=== PATIENT | female | born 1990 | race Caucasian/White ===

== ENCOUNTER 2016-11-13 05:44 | Day surgery (SDC) | payer BC ==
[2016-11-10 10:14] VITALS: BMI 24.8
[2016-11-13] VITALS (15 sets, daily range): BP systolic 100–117; BP diastolic 55–74; PULSE 66–80; RESP 14–18; Ht 162.6 cm; Wt 64.6 kg
[~2016-11-13] VITALS: Ht 162.6 cm; Wt 64.6 kg
[~2016-11-13 05:44] MED LIST: ASPI-664 PO; CYCL-319 PO; FAMO-18 PO; HYDR-3498 PO; IBUP-1542 PO; IBUP800T25 PO; LEVO25TA53 PO; NAPR-260 PO; ONDA4TAB8 PO; OXYC-281 PO; TRAM50TA2 PO; ZOF8 PO
[2016-11-13] MEDS ORDERED: FOLI-49 PO (06:55)
[2016-11-13] MEDS ORDERED: ROPIVACAINE 0.5 % 30 ML VIAL ONE (07:05)
[2016-11-13] MEDS ORDERED: LIDOCAINE 2% (SDV) 5 ML INJ ONE (07:05)
[2016-11-13] MEDS ORDERED: MIDAZOLAM 1 MG/ML 2 ML INJ ONE ×2 (07:05→07:40)
[2016-11-13] MEDS ORDERED: FENTAnyl 50 MCG/ML VIAL ONE (07:40)
[2016-11-13] MEDS ORDERED: ROCURONIUM 50 MG INJ ONE (07:40)
[2016-11-13] MEDS ORDERED: PROPOFOL 20 ML ONE (07:40)
[2016-11-13] MEDS ORDERED: SUCCINYLCHOLINE CHLORIDE 100 MG/5 ML SYG IV ONE (07:40)
--- NOTE | 2016-11-13 07:51 | HPN ---
Date/Time of Note Date/Time of Note DATE: 11/13/16 TIME: 07:51 Interval H&P Admission Note Pt. seen H&P reviewed: No system changes ANITA RAMSEY MD Nov 13, 2016 07:51
[2016-11-13] MEDS ORDERED: PROVENTIL HFA 6.7GM INHALER ONE (08:16)
[2016-11-13] MEDS ORDERED: PHENYLephrine (100 MCG/ML) 5ML SYG ONE (09:05)
[2016-11-13] MEDS ORDERED: DEXAMETHASONE 4 MG/ML 1 ML INJ ONE (09:22)
[2016-11-13] MEDS ORDERED: ONDANSETRON 4 MG INJ ONE (09:22)
[2016-11-13] MEDS ORDERED: DIPHENHYDRAMINE 50 MG INJ ONE (09:25)
[2016-11-13] MEDS ORDERED: MEPERIDINE 25 MG INJ IV PRN (09:30)
[2016-11-13] MEDS ORDERED: ONDANSETRON 4 MG INJ IV PRN (09:30)
[2016-11-13] MEDS ORDERED: METOCLOPRAMIDE 10 MG INJ IV PRN (09:30)
[2016-11-13] MEDS ORDERED: OXYCODONE/ACETAMINOPHEN (5/325) TAB PO PRN ×3 (09:30→12:00)
[2016-11-13] MEDS ORDERED: DIPHENHYDRAMINE 50 MG INJ IV PRN (09:30)
[2016-11-13] MEDS ORDERED: PROCHLORPERAZINE 10 MG INJ IV PRN (09:30)
[2016-11-13] MEDS ORDERED: HYDROmorphONE (0.2 MG/ML) 10ML SYG IV PRN ×2 (09:30)
[2016-11-13] MEDS ORDERED: GLYCOPYRROLATE 0.4 MG INJ ONE (10:00)
[2016-11-13] MEDS ORDERED: NEOSTIGMINE 3 MG/3 ML SYRINGE ONE (10:00)
[2016-11-13] MEDS ORDERED: CEFAZOLIN 1 GM INJ ONE (10:04)
[2016-11-13] MEDS ORDERED: morphine 2 MG INJ IV PRN (12:00)
[2016-11-13] MEDS ORDERED: morphine 10 MG INJ IV PRN (12:00)
[2016-11-13] MEDS: FENTAnyl 50 MCG/ML VIAL IV PRN ×4 (12:00→12:19)
--- NOTE | 2016-11-13 12:06 | OPR ---
Date/Time of Note Date/Time of Note DATE: 11/13/16 TIME: 11:54 Operative Report Procedure Date: Nov 13, 2016 Preoperative Diagnosis 1. Right ankle soft tissue impingement, synovitis and scar tissue. 2. Right ankle chronic lateral instability. 3. Right ankle medial talar OCD lesion Postoperative Diagnosis 1. Right ankle soft tissue impingement, synovitis and scar tissue. 2. Right ankle chronic lateral instability. 3. Right ankle medial talar OCD lesion, 6 x 4 x 3 mm Operation Performed 1. Bilateral inversion stress x-rays under anesthesia. 2. Arthroscopy of the Right ankle with extensive debridement. 3. Arthroscopic microfracture of the talus 4. Modified Brostrom-Lester reconstruction of the right ankle lateral ligament. 5. Application of platelet-rich plasma to the Right ankle and to the lateral ankle ligaments. 6. Right ankle application osteochondral allograft (Arthrex Biocartilage) to the medial talar dome 7. Application of short leg cast. Surgeon: ANITA RAMSEY MD Hog Sawyer: LINA AUSTIN Anesthesia: general, other (popliteal block) Tourniquet Time: 0 min Estimated Blood Loss: minimal Complications: None Pt Condition Post Procedure: stable Disposition: PACU Indications Patient is a 26 year female with history of multiple ankle sprains and mri and ct documenting medial talar ocd lesion. Patient has failed PT and conservative management and requires surgery Operative Findings 6 x 4 x 3 mm medial talar OCD lesion Procedure Description The patient was marked in the preoperative holding area and confirmed on both consent and with patient. The patient was then brought to the operative theater and placed supine on the operative table. The patient was then given a popliteal block. The patient was then given general anesthesia and 2 grams of Ancef were given intravenously. Bilateral inversion stress x-rays were performed by myself under fluoroscopy and the right ankle tipped approximately 7 degrees and the left ankle tipped 0 degrees. Her exam also revealed increased laxity and was consistent with anterolateral instability. However, it was less consistent with anteromedial instability. The right thigh was secured in the thigh loving. Arms were carefully padded. The right leg was then prepped and draped in the usual manner and time out was taken. All parties in the room agreed it was the correct patient, correct extremity and correct procedure. Superficial peroneal nerve had been marked out. A soft tissue distraction strap was applied across the ankle and a soft tissue dissection was then placed across the ankle at approximately 30 pounds of force. Attention was then turned to the ankle joint and using a typical anterior medial and anterolateral portal with care to avoid injury to the neurovascular structures. A 21 point ankle exam was completed revealing significant anterior lateral synovitis with lateral and medial gutter synovitis and scar tissue formation. There was a hemorrhagic nodule seen in the lateral gutter as well as evidence of anterior tibial osteophyte overhang. The significant amount of scar tissue was thoroughly debrided in the vascular service was examined with no evidence of significant chondral injury. The distal tibial anterior overhang was excised with a dionte and smoothed down with a shaver. Extensive synovitis and scarring was seen on the medial and lateral malleolar/ talar articulation as well as scarring along the distal tibia and lateral gutters and anterior gutter. The articular surface was smooth and glistening anteriorly, centrally and posteriorly. The posterior ligaments had a partial injury to them; however, the transverse ligament was intact as well as the posterior inferior tibiofibular ligament. The lateral ankle ligaments were scarred and consistent with the previous history. The posterior gutter, medial and lateral gutters were debrided and a posterolateral hemorrhagic synovitic nodule was removed. A large medial talar OCD lesion measuring 6 x 4 x 3 mm was seen over the medial talar dome with cystic component. The lesion was thoroughly debrided and cystic membrane was debrided extensively. Once all scar tissue was debrided and complete debridement was then done the ankle was washed out thoroughly. Microfracture was then performed at this lesion, water was turned off and the lesion bed was dried extensively. Arthrex Biocartilage was mixed with PRP (Hct 2%) and then placed over the lesion completely followed by Tisseel to glue it down. The ankle was then reprepped and draped with all new instruments used. The patient was then repositioned and gown and gloves were changed. A longitudinal incision was made from several centimeters above the tip of the fibula to several centimeters distal towards the sinus tarsi. The incision was carried down to subcutaneous tissue. Flaps were made medially and laterally and extensor retinaculum was identified and lifted up. Incision was made in the peroneal tendons. The peroneal tendon sheath was opened up with no tear noted. There was mild tenosynovitis which was debrided. The anterior talofibular ligament was identified. A Vandana was placed underneath it and incision was made around it leaving a cuff on the fibula as it was released. The calcaneofibular ligament was injured and was felt to be necessary to repair. The lateral gutter was debrided further and 2-0 PDS was used to do the initial fgdkp-[id number] suture of the ATFL and CFL and then 0 FiberWire was used for the remaining sutures in the [id number]-[id number]-[id number] fashion. An arthrex internal brace was placed in the talus. The posterior drawer was placed on the ankle with a bolster on the calf and ankle was placed in neutral position and sequentially each suture was tied from posterior to anterior. Once we were done , the ankle was stable and had good range of motion. The internal brace was then placed under controlled tension to the fibula with a 2.7 swivellock. The wound was irrigated thoroughly with antibiotic solution and the extensor retinaculum was then advanced with 3-0 PDS in a [id number]-[id number]-[id number] fashion. Bleeders were coagulated, wounds irrigated with antibiotic solution and the wounds were then closed with 3-0 Monocryl in a running fashion and steri strip. PRP was then applied that was spun down to approximately 2% Hct to the ankle joint and 7% hematocrit from the Arthrex Ruel System to the Brostrom Lester repair site. Compression dressings were then applied after a saphenous nerve block was done with 0.5% ropivacaine. The compression dressings were then soaked in platelet-poor plasma and then wrapped with Soft-Roll and 5 ABDs. The patient was placed in a short leg cast in a neutral position. At the end of the procedure all sponge and needle counts were correct. The patient tolerated procedure well without complication and taken to the recovery room. ANITA RAMSEY MD Nov 13, 2016 12:06
--- NOTE | 2016-11-13 13:10 | RADRPT ---
PROCEDURE: X-ray fluoroscopy guidance CLINICAL INDICATION: Pain TECHNIQUE: Fluoroscopic guidance was utilized for bilateral ankle stress views. COMPARISON: None available FINDINGS: Fluoroscopic guidance was provided. 5.9 seconds of fluoroscopy time was utilized for the procedure. 4 images obtained during the procedure in progress. IMPRESSION: 1. X-ray fluoroscopic guidance, as above. RPTAT: QQ .Donn García MD, MD Date Time Electronically viewed and signed by .Donn García MD, MD on 11/13/2016 13:10 .R/
== END 2016-11-13 14:37 | disposition home or self-care (01) ==
LOC: SDS 05:44
PROVIDERS: ATTEND Orthopaedic Surgery
DX: M25.871 Other specified joint disorders, right ankle and foot (principal); M25.371 Other instability, right ankle; M93.271 Osteochondritis dissecans, right ankle and joints of right foot; E03.9 Hypothyroidism, unspecified
CPT/HCPCS: 27695; 29892; 73600; 84703; J0330; J0690; J1100; J1200; J2175; J2250; J2270; J2405; J2710; J2795; J3010; Z7512; Z7610; J2370

== ENCOUNTER 2016-12-16 10:52 | Emergency (ER) | payer BC ==
[~2016-12-16] VITALS: Wt 64.5 kg
[~2016-12-16 10:52] MED LIST changes: -ASPI-664 PO; -CYCL-319 PO; -FAMO-18 PO; +FOLI-49 PO; -HYDR-3498 PO; -IBUP800T25 PO; -NAPR-260 PO; -ONDA4TAB8 PO; -OXYC-281 PO; -TRAM50TA2 PO; -ZOF8 PO
[2016-12-16] MEDS ORDERED: ACETAMINOPHEN 500 MG TAB PO STA (11:49)
[2016-12-16] MEDS ORDERED: ONDANSETRON 4 MG INJ IV STA (11:49)
[2016-12-16] MEDS ORDERED: morphine 10 MG INJ IV ONE (12:00)
[2016-12-16 12:44] LABS: ADD SCAN DIFF NO
[2016-12-16 12:46] LABS: BASOPHIL # 0.1 10^3/ul (0.0-0.1); BASOPHILS % 0.3 % (0.0-2.0); EOSINOPHILS % 0.1 % (0.0-7.0); HEMATOCRIT 42.3 % (37.0-47.0); HEMOGLOBIN 14.7 g/dl (12.0-16.0); LYMPHOCYTES % 9.4 % (15.0-51.0); MEAN CORPUSCULAR HEMOGLOBIN 30.8 pg (29.0-33.0); MEAN CORPUSCULAR HGB CONC 34.8 g/dl (32.0-37.0); MEAN CORPUSCULAR VOLUME 88.5 fl (82.0-101.0); MEAN PLATELET VOLUME 10.2 fl (7.4-10.4); MONOCYTE # 0.9 10^3/ul (0.3-0.9); MONOCYTES % 4.4 % (0.0-11.0); NEUTROPHIL # 18.1 10^3/ul (1.6-7.5); NEUTROPHILS % 85.2 % (39.0-77.0); PLATELET COUNT 287 10^3/UL (140-415); RED BLOOD COUNT 4.78 10^6/ul (4.20-5.40); RED CELL DISTRIBUTION WIDTH 11.9 % (11.5-14.5); WHITE BLOOD COUNT 21.2 10^3/ul (4.8-10.8)
[2016-12-16 13:07] LABS: ALBUMIN 4.4 g/dl (3.3-4.9); INR 0.9; POTASSIUM 3.8 mmol/L (3.5-5.1); PROTIME 12.1 Sec (12.2-14.2); PT RATIO 0.9
[2016-12-16 13:08] LABS: PARTIAL THROMBOPLASTIN TIME 27.6 Sec (25.0-35.0)
[2016-12-16 13:09] LABS: BILIRUBIN,INDIRECT 1.3 mg/dl (0-1.1); BILIRUBIN,TOTAL 1.3 mg/dl (0.2-1.3); CREATININE 0.84 mg/dl (0.44-1.00)
[2016-12-16 13:10] LABS: ALBUMIN/GLOBULIN RATIO 1.22
[2016-12-16 13:11] LABS: CALCIUM 9.4 mg/dl (8.4-10.2)
[2016-12-16 13:33] LABS: ADD UMIC YES; URINE BILIRUBIN (Dip) NEGATIVE (NEGATIVE); URINE BLOOD (Dip) TRACE (NEGATIVE); URINE COLOR LT. YELLOW (YELLOW); URINE GLUCOSE (Dip) NEGATIVE (NEGATIVE); URINE KETONES (Dip) NEGATIVE (NEGATIVE); URINE LEUKOCYTE ESTERASE (Dip) TRACE (NEGATIVE); URINE NITRITE (Dip) NEGATIVE (NEGATIVE); URINE TOTAL PROTEIN (Dip) NEGATIVE (NEGATIVE); URINE UROBILINOGEN (Dip) 0.2 E.U./dL (0.1-1.0)
--- NOTE | 2016-12-16 13:36 | RADRPT ---
PROCEDURE: US DVT. CLINICAL INDICATION: Right lower extremity pain and swelling. TECHNIQUE: Multiple longitudinal and transverse images of the right lower extremity veins were obt ained with marsh scale and color Doppler imaging. 2D grayscale measurements with compression, color Doppler flow, and augmentation was performed. The calf veins were interrogated as well. COMPARISON: No prior studies are available for comparison. FINDINGS: The right common femoral, superficial femoral and popliteal veins are normally compressible througho ut. Color flow demonstrates normal filling of the vessel. Normal waveforms are visualized and ther e is normal response to augmentation. The calf veins are visualized and are equally unremarkable. IMPRESSION: 1. No evidence of a deep vein thrombosis involving the right lower extremity. RPTAT: HMJB .Dennis Ventura MD, Date Time Electronically viewed and signed by .Dennis Ventura MD, MD on 12/16/2016 13:35 .B/
[2016-12-16 13:40] LABS: SQUAMOUS EPITHELIAL CELL,UR MODERATE; URINE RBCS 0-2 /HPF (0)
[2016-12-16 14:35] LABS: CREATINE KINASE 49 IU/L (23-200)
[2016-12-16] MEDS ORDERED: KETOROLAC 30 MG INJ IV STA (14:37)
[2016-12-16 14:49] LABS: CK-MB < 0.22 ng/ml (0.0-2.4); TROPONIN-I < 0.012 ng/ml (0.00-0.12)
--- NOTE | 2016-12-16 14:51 | ERD ---
ER Documentation Chief Complaint Date/Time DATE: 12/16/16 TIME: 14:38 Chief Complaint RIGHT LOWER LEG PAIN S/P SURGERY ON ANKLE 11/13/16. SENT BY PMD FOR DOPPLER (MELANIE MORALES) HPI This is a 26-year-old female presents to the ER with right calf pain this morning. Patient states that pain is severe and constant it is worse whenever she touches it or moves leg. Patient admits to fever. Recent has not tried anything for the pain. Patient denies any chest pain however does admit to mild shortness of breath. She denies any other body pain. She denies cough or cold symptoms she denies nausea vomiting or diarrhea. Patient is also complaining that her foot feels numb. She had surgery on November 13, 2016 for an ankle sprain. She was told to come to the ER to rule out blood clot. Patient 's daughter was seen here yesterday and was diagnosed with the influenza virus. (MELANIE MORALES) ROS 12 point review of systems was done, all negative except per HPI. (MELANIE MORALES) Medications Home Meds Active Scripts Hydrocodone/Acetaminophen (Rohwer 5-325 Tablet) 1 Each Tablet, 1 TAB PO Q6H Y for PAIN, #20 TAB Prov:MELANIE MORALES 12/16/16 Ibuprofen* (Motrin*) 600 Mg Tab, 600 MG PO Q6, #30 TAB Prov:MELANIE MORALES 12/16/16 Ibuprofen* (Motrin*) 600 Mg Tab, 600 MG PO Q6, #16 TAB Prov:JOVANI MUHAMMAD MD 04/11/16 Reported Medications Folic Acid* (Folic Acid*) 1 Mg Tablet, 1 MG PO DAILY, TAB 11/13/16 Levothyroxine Sodium* (Levothyroxine Sodium*) 25 Mcg Tablet, 1 TAB PO DAILY, #30 11/10/16 Allergies Allergies: Coded Allergies: No Known Drug Allergies (Verified Allergy, Unknown, 11/10/16) Uncoded Allergies: MUSHROOMS (Allergy, Intermediate, SWELL UP, 12/15/13) PMhx/Soc History of Surgery: Yes (briana ear sx,) Anesthesia Reaction: No Hx Neurological Disorder: Yes (bells palsy, stroke x2) Hx Respiratory Disorders: No Hx Cardiac Disorders: No Hx Psychiatric Problems: No Hx Miscellaneous Medical Probl: Yes (cervical ca) Hx Alcohol Use: Yes (socially) Hx Substance Use: No Hx Tobacco Use: No (MELANIE MORALES) Physical Exam Vitals Vital Signs Date Time Temp Pulse Resp B/P Pulse Ox O2 Delivery O2 Flow Rate FiO2 12/16/16 15:06 98.6 105 17 100 Room Air 12/16/16 10:55 101.7 134 20 110/68 95 (JOVANI MUHAMMAD MD) Physical Exam C GENERAL: The patient is well developed and appropriate for usual state of health, in no apparent distress. HEENT: Atraumatic. CHEST: Clear to auscultation bilaterally. There are no rales, wheezes or rhonchi. HEART: Regular rate and rhythm. No murmurs, clicks, rubs or gallops. EXTREMITIES: patient is extremely TTP to the right calf. no redness or swelling of the calf. she does not have any pain to the surgery site. there is no erythema, edema or d/c of the incision sites. +2 pulses, compartments soft, foot is warm to the touch. sensations are intact NEURO: Alert and oriented. SKIN: The skin is warm and dry. (MELANIE MORALES) Result Diagram: 12/16/16 1230 12/16/16 1230 Results 24 hrs Laboratory Tests Test 12/16/16 12:30 12/16/16 13:12 12/16/16 16:30 Activated Partial Thromboplast Time 27.6Sec Alanine Aminotransferase (ALT/SGPT) 19IU/L Albumin 4.4g/dl Albumin/Globulin Ratio 1.22 Alkaline Phosphatase 88IU/L Anion Gap 19 Aspartate Amino Transf (AST/SGOT) 21IU/L Basophils # 0.110^3/ul Basophils % 0.3% Blood Urea Nitrogen 9mg/dl C-Reactive Protein 2.5mg/dl Calcium Level 9.4mg/dl Carbon Dioxide Level 27mmol/L Chloride Level 101mmol/L Creatine Kinase 49IU/L Creatine Kinase Index 0.4 Creatinine 0.84mg/dl Creatinine Kinase MB (Mass) < 0.22ng/ml Direct Bilirubin 0.00mg/dl Eosinophils # 0.010^3/ul Eosinophils % 0.1% Erythrocyte Sedimentation Rate 25mm/Hr Globulin 3.60g/dl Glucose Level 96mg/dl Hematocrit 42.3% Hemoglobin 14.7g/dl INR International Normalized Ratio 0.90 Indirect Bilirubin 1.3mg/dl Lactic Acid Level 1.2mmol/L 0.8mmol/L Lymphocytes # 2.010^3/ul Lymphocytes % 9.4% Mean Corpuscular Hemoglobin 30.8pg Mean Corpuscular Hemoglobin Concent 34.8g/dl Mean Corpuscular Volume 88.5fl Mean Platelet Volume 10.2fl Monocytes # 0.910^3/ul Monocytes % 4.4% Neutrophils # 18.110^3/ul Neutrophils % 85.2% Nucleated Red Blood Cells # 0.010^3/ul Nucleated Red Blood Cells % 0.0/100WBC Platelet Count 59295^3/UL Potassium Level 3.8mmol/L Prothrombin Time 12.1Sec Prothrombin Time Ratio 0.9 Red Blood Count 4.7810^6/ul Red Cell Distribution Width 11.9% Sodium Level 143mmol/L Total Bilirubin 1.3mg/dl Total Protein 8.0g/dl Troponin I < 0.012ng/ml White Blood Count 21.210^3/ul Urine Bilirubin NEGATIVE Urine Clarity CLEAR Urine Color LT. YELLOW Urine Glucose NEGATIVE% Urine Hemoglobin TRACE Urine Ketones NEGATIVE Urine Leukocyte Esterase TRACE Urine Microscopic RBC 0-2/HPF Urine Microscopic WBC 2-5/HPF Urine Nitrite NEGATIVE Urine Specific [place] <=1.005 Urine Squamous Epithelial Cells MODERATE Urine Total Protein NEGATIVE Urine Urobilinogen 0.2 E.U./dL Urine pH 6.0 Current Medications Medications (Trade) Dose Ordered Sig/Manju Route PRN Reason Start Time Stop Time Status Last Admin Dose Admin Acetaminophen (Tylenol Tab) 1,000 mg ONCE STAT PO 12/16/16 11:49 12/16/16 11:54 DC 12/16/16 12:35 Morphine Sulfate (morphine) 6 mg ONCE ONCE IV 12/16/16 12:00 12/16/16 12:01 DC 12/16/16 12:36 Ondansetron HCl (Zofran Inj) 4 mg ONCE STAT IV 12/16/16 11:49 12/16/16 11:54 DC 12/16/16 12:35 Ketorolac Tromethamine 30 mg 30 mg ONCE STAT IV 12/16/16 14:37 12/16/16 14:39 DC 12/16/16 15:03 Sodium Chloride (NS) 1,000 ml @ 1,000 mls/hr Q1H ONCE IV 12/16/16 15:00 12/16/16 15:59 DC 12/16/16 15:03 (JOVANI MUHAMMAD MD) Procedures/MDM Dr Pina was at bedside and examined patient with me. Differential Diagnosis includes but is not limited to; influenza, myalgias, myositis, rhabdomyolysis, osteomyelitis, acute compartment syndrome, DVT, pulmonary embolism.Patient's ultrasound was negative. Suspicion for PE is low. Suspicion for acute compartment syndrome is low, compartments are soft and patient has normal pulses. Suspicion for rhabdomyolysis is low. Patients likely has myositis, I am awaiting ESR, CRP and CT results. Patient's care will be left for Dr. Muhammad. (MELANIE MORALES) Patient presents with fever and right calf pain of uncertain etiology. This case was signed out for review of CT scan to evaluate for soft tissue gas or acute abnormalities. CT was read as normal by the radiologist. Patient felt better after Toradol appears safe for discharge and close observation as an outpatient. Patient is advised to recheck the next day for persistent fevers, worsening pain, new worsening symptoms otherwise there is no current evidence to suggest osteomyelitis, septic arthritis,, significant cellulitis, abscess, DVT. Patient may have some type of viral myositis. (JOVANI MUHAMMAD MD) Departure Diagnosis: Primary Impression: Pain of right leg Condition: Stable MELANIE MORALES Dec 16, 2016 14:50 JOVANI MUHAMMAD MD Dec 16, 2016 17:57
--- NOTE | 2016-12-16 14:56 | RADRPT ---
PROCEDURE: XR Chest. CLINICAL INDICATION: Sepsis TECHNIQUE: Chest AP portable. COMPARISON: No comparison available. FINDINGS: The mediastinal structures are unremarkable. The heart is normal in size and configuration. The pu lmonary vascularity is normal. The lung harley are unremarkable. No consolidation is identified. The pleural spaces are unremarkable. The axial skeleton is unremarkable. IMPRESSION: No active intrathoracic disease. RPTAT: HGDB .Yemi Garcia MD, MD Date Time Electronically viewed and signed by .Yemi Garcia MD, on 12/16/2016 14:56 .B/
[2016-12-16] MEDS ORDERED: SOD CHLORIDE 0.9% 1,000 ML IV ONE (15:00)
--- NOTE | 2016-12-16 15:18 | QN ---
Documentation Comment I have seen and evaluated the patient along with the PA and/or VACCINE MANAGER provider. I agree with the evaluation and plan of care. Please see their documentation for full ER course and evaluation. In short: The patient had surgery approximately 1 month ago. The patient now describes calf pain. She describes severe calf pain that is worse to touch. She denies any pleuritic pain, no significant shortness of breath. On exam: The patient is focal and significant tenderness of the calf on the right, negative Homans sign, 2+ dorsalis pedis and posterior tibial pulses. Surgical site is extremely well-appearing no erythema warmth or tenderness. Assessment and plan: Her symptoms seem consistent with myositis. I do not believe this is consistent with osteomyelitis. She has no evidence of necrotizing process. The patient does have significant leukocytosis. Her family member was recently diagnosed with influenza. Viral myositis may be a reasonable diagnosis in this patient. She has no evidence of acute vascular occlusion. She has a negative DVT. Our plan is to order ESR CRP and CT scan. Low threshold for hospitalization. A nonsterile anti-inflammatory recommended. At this time no indication for antibiotics, continue close monitoring. CHIO SIVLA MD Dec 16, 2016 15:18
[2016-12-16] MEDS ORDERED: HYDR-906 PO (15:47)
[2016-12-16] MEDS ORDERED: IBUP-1542 PO (15:47)
--- NOTE | 2016-12-16 17:54 | RADRPT ---
PROCEDURE: CT right lower extremity without contrast CLINICAL INDICATION: Calf pain. TECHNIQUE: A noncontrast CT of the right lower extremity was performed, from the knee through the foot. Coronal and sagittal reformats were generated. CTDIvol: 18.50 mGy. DLP: 1197.88 mGy-cm. COMPARISON: CT of the right lower extremity dated 04/19/2016. FINDINGS: An osteochondral lesion along the talar dome, talar beaking, and a few ossific fragment posterior to the talocalcaneal joint are not significantly changed since the prior CT. No acute fracture or dis location is identified. Bone mineralization is normal. The visualized soft tissue structures are unr emarkable. IMPRESSION: 1. Noncontrast CT appearance of the right lower extremity soft tissues. 2. No significant change in an osteochondral lesion along the talar dome, talar beaking, and a few ossific fragments posterior to the talocalcaneal joint. RPTAT: HTAR .Ernie Funes MD, MD Date Time Electronically viewed and signed by .Ernie Funes MD, on 12/16/2016 17:54 .R/
[2016-12-16] MEDS ORDERED: HYDROCODONE/APAP (10/325) TAB PO ONE (18:30)
[2016-12-16 18:47] VITALS: BP 108/66; PULSE 80; RESP 15; TEMP 98.5
== END 2016-12-16 18:49 | disposition home or self-care (01) ==
LOC: FTE 10:52
DX: G89.18 Other acute postprocedural pain (principal); M79.604 Pain in right leg; Z85.41 Personal history of malignant neoplasm of cervix uteri
CPT/HCPCS: 36415; 71010; 73700; 80053; 81001; 82550; 82553; 83605; 84484; 85025; 85610; 85651; 85730; 86140; 87040; 87400; 93971; 96374; 96375; J1885; J2270; J2405; Z7502; Z7610; 81003; 93005

== ENCOUNTER 2016-12-17 09:14 | Emergency (ER) | payer BC ==
[~2016-12-17] VITALS: Wt 65.0 kg
[~2016-12-17 09:14] MED LIST changes: +HYDR-906 PO
[2016-12-17] MEDS ORDERED: KETOROLAC 30 MG INJ IV STA (09:55)
[2016-12-17] MEDS ORDERED: SOD CHLORIDE 0.9% 1,000 ML IV ONE (10:00)
[2016-12-17 10:32] LABS: ADD UMIC YES; URINE BILIRUBIN (Dip) NEGATIVE (NEGATIVE); URINE BLOOD (Dip) TRACE (NEGATIVE); URINE COLOR LT. YELLOW (YELLOW); URINE GLUCOSE (Dip) NEGATIVE (NEGATIVE); URINE KETONES (Dip) NEGATIVE (NEGATIVE); URINE LEUKOCYTE ESTERASE (Dip) 1+ (NEGATIVE); URINE NITRITE (Dip) NEGATIVE (NEGATIVE); URINE TOTAL PROTEIN (Dip) NEGATIVE (NEGATIVE); URINE UROBILINOGEN (Dip) 0.2 E.U./dL (0.1-1.0)
[2016-12-17 10:40] LABS: BACTERIA,URINE RARE; URINE RBCS 0-2 /HPF (0)
[2016-12-17 10:55] LABS: ADD SCAN DIFF NO
[2016-12-17 10:57] LABS: BASOPHILS % 0.3 % (0.0-2.0); EOSINOPHILS # 0.1 10^3/ul (0.0-0.5); EOSINOPHILS % 0.8 % (0.0-7.0); HEMATOCRIT 40.4 % (37.0-47.0); HEMOGLOBIN 13.5 g/dl (12.0-16.0); LYMPHOCYTES # 1.6 10^3/ul (0.8-2.9); LYMPHOCYTES % 17.6 % (15.0-51.0); MEAN CORPUSCULAR HEMOGLOBIN 30.3 pg (29.0-33.0); MEAN CORPUSCULAR HGB CONC 33.4 g/dl (32.0-37.0); MEAN CORPUSCULAR VOLUME 90.6 fl (82.0-101.0); MEAN PLATELET VOLUME 10.2 fl (7.4-10.4); MONOCYTE # 0.4 10^3/ul (0.3-0.9); MONOCYTES % 4.5 % (0.0-11.0); NEUTROPHIL # 6.9 10^3/ul (1.6-7.5); NEUTROPHILS % 76.4 % (39.0-77.0); PLATELET COUNT 265 10^3/UL (140-415); RED BLOOD COUNT 4.46 10^6/ul (4.20-5.40); RED CELL DISTRIBUTION WIDTH 11.9 % (11.5-14.5)
[2016-12-17] MEDS ORDERED: ONDANSETRON 4 MG INJ IV STA (10:59)
[2016-12-17] MEDS ORDERED: HYDROmorphONE 1 MG/ML SYG IV STA ×2 (10:59→11:56)
[2016-12-17 11:08] LABS: CHLORIDE 104 mmol/L (97-110)
[2016-12-17 11:09] LABS: ALBUMIN 4.1 g/dl (3.3-4.9); SODIUM 146 mmol/L (135-144)
[2016-12-17 11:10] LABS: POTASSIUM 3.7 mmol/L (3.5-5.1)
[2016-12-17 11:12] LABS: BILIRUBIN,INDIRECT 0.8 mg/dl (0-1.1); BILIRUBIN,TOTAL 0.8 mg/dl (0.2-1.3)
[2016-12-17 11:13] LABS: ALANINE AMINOTRANSFERASE 19 IU/L (13-69); ALBUMIN/GLOBULIN RATIO 1.17; ALKALINE PHOSPHATASE 75 IU/L (42-121); ANION GAP 17 (8-16); ASPARTATE AMINO TRANSFERASE 22 IU/L (15-46); BLOOD UREA NITROGEN 12 mg/dl (7-20); CALCIUM 9.3 mg/dl (8.4-10.2); CARBON DIOXIDE 29 mmol/L (21-31); CREATINE KINASE 48 IU/L (23-200); GLUCOSE 99 mg/dl (70-220); TOTAL PROTEIN 7.6 g/dl (6.1-8.1)
[2016-12-17 11:15] LABS: C-REACTIVE PROTEIN 4.6 mg/dl (0.0-0.9)
[2016-12-17 11:21] LABS: CK-MB 0.24 ng/ml (0.0-2.4)
[2016-12-17 11:25] LABS: TROPONIN-I < 0.012 ng/ml (0.00-0.12)
[2016-12-17] MEDS ORDERED: LORAZEPAM 2 MG INJ IV ONE (12:00)
[2016-12-17 13:23] VITALS: BP 105/65; PULSE 97; RESP 17
--- NOTE | 2016-12-17 14:59 | ERD ---
ER Documentation Chief Complaint Date/Time DATE: 12/17/16 TIME: 14:54 Chief Complaint PT HERE FOR WOUND RECHECK ON RIGHT LEG HPI This is a 26-year-old female presents to the ER for recheck of her right calf pain. Patient states that last night she did have fevers however they were controlled with Tylenol. Patient states that she took ibuprofen and [place] for the pain and that it helped for 1 hour and the pain returned. Patient is still describing severe calf pain that is worse with any movement. Patient states that she continues to feel numbness and tingling of her foot. Patient denies any back pain she denies any urinary bowel incontinence. Patient denies any trauma. Patient did have a recent surgery to the ankle performed on November 13. She denies any ankle pain redness or swelling. She was extensively worked up yesterday. ROS 12 point review of systems was done, all negative except per HPI. Medications Home Meds Active Scripts Hydrocodone/Acetaminophen ([place] 5-325 Tablet) 1 Each Tablet, 1 TAB PO Q6H Y for PAIN, #20 TAB Prov:MELANIE MORALES 12/16/16 Ibuprofen* (Motrin*) 600 Mg Tab, 600 MG PO Q6, #30 TAB Prov:CARMEN,MELANIE C 12/16/16 Ibuprofen* (Motrin*) 600 Mg Tab, 600 MG PO Q6, #16 TAB Prov:JOVANI MUHAMMAD MD 04/11/16 Reported Medications Folic Acid* (Folic Acid*) 1 Mg Tablet, 1 MG PO DAILY, TAB 11/13/16 Levothyroxine Sodium* (Levothyroxine Sodium*) 25 Mcg Tablet, 1 TAB PO DAILY, #30 11/10/16 Allergies Allergies: Coded Allergies: No Known Drug Allergies (Verified Allergy, Unknown, 11/10/16) Uncoded Allergies: MUSHROOMS (Allergy, Intermediate, SWELL UP, 12/15/13) PMhx/Soc History of Surgery: No Anesthesia Reaction: No Hx Neurological Disorder: No Hx Respiratory Disorders: No Hx Cardiac Disorders: No Hx Psychiatric Problems: No Hx Miscellaneous Medical Probl: No Hx Alcohol Use: No Hx Substance Use: No Hx Tobacco Use: No Smoking Status: Never smoker Physical Exam Vitals Vital Signs Date Time Temp Pulse Resp B/P Pulse Ox O2 Delivery O2 Flow Rate FiO2 3/12/17 13:23 97 17 105/65 100 Room Air 12/17/16 09:32 97.6 94 17 121/70 98 Physical Exam GENERAL: The patient is well developed and appropriate for usual state of health , in no apparent distress. HEENT: Atraumatic. CHEST: Clear to auscultation bilaterally. There are no rales, wheezes or rhonchi. HEART: Regular rate and rhythm. No murmurs, clicks, rubs or gallops. EXTREMITIES: Left leg: Patient does not have any hip pain or femur pain. Patient is tender to palpation at the left calf patient is able to dorsiflex foot difficulty plantar flexing secondary to pain. +2 pulses. warm to the touch NEURO: Alert and oriented. . SKIN: The skin is warm and dry. Result Diagram: 12/17/16 1035 12/17/16 1035 Results 24 hrs Laboratory Tests Test 12/17/16 10:21 12/17/16 10:35 Urine Bacteria RARE Urine Bilirubin NEGATIVE Urine Clarity CLEAR Urine Color LT. YELLOW Urine Epithelial Cells OCCASIONAL Urine Glucose NEGATIVE% Urine Hemoglobin TRACE Urine Ketones NEGATIVE Urine Leukocyte Esterase 1+ Urine Microscopic RBC 0-2/HPF Urine Microscopic WBC 2-5/HPF Urine Nitrite NEGATIVE Urine Specific [place] 1.025 Urine Total Protein NEGATIVE Urine Urobilinogen 0.2 E.U./dL Urine pH 6.0 Alanine Aminotransferase (ALT/SGPT) 19IU/L Albumin 4.1g/dl Albumin/Globulin Ratio 1.17 Alkaline Phosphatase 75IU/L Anion Gap 17 Aspartate Amino Transf (AST/SGOT) 22IU/L Basophils # 0.010^3/ul Basophils % 0.3% Blood Urea Nitrogen 12mg/dl C-Reactive Protein 4.6mg/dl Calcium Level 9.3mg/dl Carbon Dioxide Level 29mmol/L Chloride Level 104mmol/L Creatine Kinase 48IU/L Creatine Kinase Index 0.5 Creatinine 0.80mg/dl Creatinine Kinase MB (Mass) 0.24ng/ml Direct Bilirubin 0.00mg/dl Eosinophils # 0.110^3/ul Eosinophils % 0.8% Erythrocyte Sedimentation Rate 35mm/Hr Globulin 3.50g/dl Glucose Level 99mg/dl Hematocrit 40.4% Hemoglobin 13.5g/dl Indirect Bilirubin 0.8mg/dl Lymphocytes # 1.610^3/ul Lymphocytes % 17.6% Mean Corpuscular Hemoglobin 30.3pg Mean Corpuscular Hemoglobin Concent 33.4g/dl Mean Corpuscular Volume 90.6fl Mean Platelet Volume 10.2fl Monocytes # 0.410^3/ul Monocytes % 4.5% Neutrophils # 6.910^3/ul Neutrophils % 76.4% Nucleated Red Blood Cells # 0.010^3/ul Nucleated Red Blood Cells % 0.0/100WBC Platelet Count 77946^3/UL Potassium Level 3.7mmol/L Red Blood Count 4.4610^6/ul Red Cell Distribution Width 11.9% Sodium Level 146mmol/L Total Bilirubin 0.8mg/dl Total Protein 7.6g/dl Troponin I < 0.012ng/ml White Blood Count 9.010^3/ul Current Medications Medications (Trade) Dose Ordered Sig/Manju Route PRN Reason Start Time Stop Time Status Last Admin Dose Admin Sodium Chloride (NS) 1,000 ml @ 1,000 mls/hr Q1H ONCE IV 12/17/16 10:00 12/17/16 10:59 DC 12/17/16 10:44 Ketorolac Tromethamine (Toradol) 30 mg ONCE STAT IV 12/17/16 09:55 12/17/16 09:58 DC 12/17/16 10:43 Hydromorphone HCl (Dilaudid) 1 mg ONCE STAT IV 12/17/16 10:59 12/17/16 11:00 DC 12/17/16 11:09 Ondansetron HCl (Zofran Inj) 4 mg ONCE STAT IV 12/17/16 10:59 12/17/16 11:00 DC 12/17/16 11:04 Hydromorphone HCl (Dilaudid) 1 mg ONCE STAT IV 12/17/16 11:56 12/17/16 11:57 DC 12/17/16 12:16 Lorazepam (Ativan) 0.5 mg ONCE ONCE IV 12/17/16 12:00 12/17/16 12:01 DC 12/17/16 12:16 Procedures/MDM This is a 26-year-old female that returns to the ER for calf pain. Patient was examined by myself and by Dr. Romo. Lab work was redrawn there was no elevation of white blood cells anymore. No evidence of rhabdo, myositis, acute compartment syndrome, osteomyelitis. Patient is afebrile. Patient's pain was improved in the ER. She was put in a posterior ankle splint. She was neurovascularly intact before and after splint application. At this time patient is stable for outpatient follow-up. Dr. Romo agrees with my medical decision making. Patient is to follow-up with her primary care doctor within 1- 2 days or return to ER sooner if symptoms worsen. Medical decision making was shared with the patient she understands and agrees with plan. Departure Diagnosis: Primary Impression: Leg pain Condition: Stable Patient Instructions: Foot and Ankle Exercises: Ankle Circles Additional Instructions: Call your primary care doctor TOMORROW for an appointment during the next 1-2 days.See the doctor sooner or return here if your condition worsens before your appointment time. MELANIE MORALES Dec 17, 2016 14:59
== END 2016-12-17 13:30 | disposition home or self-care (01) ==
LOC: FTE 09:14
DX: M79.662 Pain in left lower leg (principal)
CPT/HCPCS: 29515; 80053; 81001; 82550; 82553; 84484; 85025; 85651; 86140; 96374; 96375; 96376; J1170; J1885; J2060; J2405; J7030; Z7502; 81003

== ENCOUNTER 2016-12-19 08:59 | Inpatient (IN) | payer BC ==
[~2016-12-19] VITALS: Ht 162.6 cm; Wt 64.9 kg
[2016-12-19] MEDS ORDERED: SODIUM CHLORIDE 0.9% 1L BAG IV* STA (09:12)
[2016-12-19] MEDS ORDERED: CEFEPIME 2GM/50 ML (PMX) 50 ML IVPB STA (09:12)
[2016-12-19] MEDS ORDERED: ONDANSETRON 4 MG INJ IV STA (09:27)
[2016-12-19] MEDS ORDERED: HYDROmorphONE 1 MG/ML SYG IV STA ×2 (09:27→11:56)
[2016-12-19] MEDS ORDERED: VANCOMYCIN 1 GM (PMX) 250 ML IVPB ONE (09:30)
--- NOTE | 2016-12-19 09:45 | RADRPT ---
PROCEDURE: XR Chest. CLINICAL INDICATION: Possible sepsis. Shortness of breath. TECHNIQUE: Single frontal chest x-ray. COMPARISON: Chest radiograph 12/16/2016. FINDINGS: The cardiomediastinal silhouette is unremarkable. No pneumothorax, pleural effusion or consolidation is seen. No acute osseous abnormality is noted. IMPRESSION: 1. No acute cardiopulmonary abnormality. No significant interval change. RPTAT: UU .Eden Cyr MD, MD Date Time Electronically viewed and signed by .Eden Cyr MD, on 12/19/2016 09:44 .N/
[2016-12-19 10:03] LABS: ADD SCAN DIFF NO
[2016-12-19 10:15] LABS: ALBUMIN 4.1 g/dl (3.3-4.9); CHLORIDE 105 mmol/L (97-110); INR 0.89; POTASSIUM 4.2 mmol/L (3.5-5.1); PT RATIO 0.9; SODIUM 147 mmol/L (135-144)
[2016-12-19 10:17] LABS: BILIRUBIN,INDIRECT 0.5 mg/dl (0-1.1); BILIRUBIN,TOTAL 0.5 mg/dl (0.2-1.3); CREATININE 0.76 mg/dl (0.44-1.00)
[2016-12-19 10:18] LABS: ALANINE AMINOTRANSFERASE 21 IU/L (13-69); ALKALINE PHOSPHATASE 71 IU/L (42-121); ANION GAP 17 (8-16); ASPARTATE AMINO TRANSFERASE 20 IU/L (15-46); BLOOD UREA NITROGEN 13 mg/dl (7-20); CALCIUM 9.1 mg/dl (8.4-10.2); CARBON DIOXIDE 29 mmol/L (21-31); CREATINE KINASE 45 IU/L (23-200); GLUCOSE 85 mg/dl (70-220); PARTIAL THROMBOPLASTIN TIME 26.6 Sec (25.0-35.0); TOTAL PROTEIN 7.5 g/dl (6.1-8.1)
[2016-12-19 10:20] LABS: ADD UMIC YES; URINE BILIRUBIN (Dip) NEGATIVE (NEGATIVE); URINE BLOOD (Dip) TRACE (NEGATIVE); URINE COLOR LT. YELLOW (YELLOW); URINE GLUCOSE (Dip) NEGATIVE (NEGATIVE); URINE KETONES (Dip) NEGATIVE (NEGATIVE); URINE LEUKOCYTE ESTERASE (Dip) NEGATIVE (NEGATIVE); URINE NITRITE (Dip) NEGATIVE (NEGATIVE); URINE TOTAL PROTEIN (Dip) NEGATIVE (NEGATIVE); URINE UROBILINOGEN (Dip) 0.2 E.U./dL (0.1-1.0)
[2016-12-19 10:23] LABS: BASOPHILS % 0.6 % (0.0-2.0); EOSINOPHILS # 0.1 10^3/ul (0.0-0.5); EOSINOPHILS % 1.7 % (0.0-7.0); HEMATOCRIT 40.6 % (37.0-47.0); HEMOGLOBIN 13.5 g/dl (12.0-16.0); LYMPHOCYTES # 2.1 10^3/ul (0.8-2.9); LYMPHOCYTES % 31.6 % (15.0-51.0); MEAN CORPUSCULAR HEMOGLOBIN 30.1 pg (29.0-33.0); MEAN CORPUSCULAR HGB CONC 33.3 g/dl (32.0-37.0); MEAN CORPUSCULAR VOLUME 90.6 fl (82.0-101.0); MEAN PLATELET VOLUME 10.2 fl (7.4-10.4); MONOCYTE # 0.3 10^3/ul (0.3-0.9); MONOCYTES % 4.7 % (0.0-11.0); NEUTROPHIL # 4.1 10^3/ul (1.6-7.5); NEUTROPHILS % 61.1 % (39.0-77.0); PLATELET COUNT 311 10^3/UL (140-415); RED BLOOD COUNT 4.48 10^6/ul (4.20-5.40); RED CELL DISTRIBUTION WIDTH 11.9 % (11.5-14.5); WHITE BLOOD COUNT 6.6 10^3/ul (4.8-10.8)
[2016-12-19 10:26] LABS: CK-MB 0.23 ng/ml (0.0-2.4)
[2016-12-19 10:52] LABS: BACTERIA,URINE FEW; URINE RBCS 0-2 /HPF (0)
--- NOTE | 2016-12-19 11:28 | RADRPT ---
PROCEDURE: MRI OF THE RIGHT LEG WITHOUT AND WITH CONTRAST CLINICAL INDICATION: Calf pain. TECHNIQUE: Multiple MRI images of the right leg were obtained utilizing multiple pulse sequences in all three planes both before and after the intravenous administration of 10 cc of Magnevist gadolin ium. Images were interpreted on a high-resolution PACS system. COMPARISON: CT from 12/16/2016 FINDINGS: A surface marker is noted over the proximal to mid posterior medial leg. Images were obtained to ab ove the level of the tibial plafond. There is no discrete mass or fluid collection within the muscles or soft tissues within the leg. Th e muscles are unremarkable without edema, denervation, or atrophy. There is no muscle herniation. The visualized tendons are unremarkable. The subcutaneous soft tissues are unremarkable. There is no acute fracture, bone marrow edema, or bony destructive changes within the tibia or fibul a. There is no aggressive appearing bone lesion or periosteal reaction. The neurovascular structures are unremarkable. No areas of abnormal enhancement are visualized with in the leg. IMPRESSION: Unremarkable MRI of the right tibia / fibula. .Maru Cordova MD, MD Date Time Electronically viewed and signed by .Maru Cordova MD, on 12/19/2016 11:27 .T/
[2016-12-19] MEDS ORDERED: ONDANSETRON 4 MG INJ IV PRN ×2 (11:30→18:30)
[2016-12-19] MEDS ORDERED: ACETAMINOPHEN 325 MG TAB PO PRN ×2 (11:30→18:30)
[2016-12-19 11:54] LABS: C-REACTIVE PROTEIN 1.2 mg/dl (0.0-0.9)
[2016-12-19 11:58] LABS: TROPONIN-I < 0.012 ng/ml (0.00-0.12)
--- NOTE | 2016-12-19 13:04 | ERA ---
ER Documentation Chief Complaint Date/Time DATE: 12/19/16 TIME: 13:02 Chief Complaint lab work and MRI request from Ortho HPI Patient is a 26-year-old female with hypothyroid disease who presents with right calf pain. She has had right-sided calf pain for the past 4 days. This is her third visit to the emergency department. She has had fevers as well. She saw Dr. Chau her orthopedic doctor who recently operated on her right ankle 1 month ago. He sent to the emergency department for further evaluation and admission. ROS All systems reviewed and are negative except as per history of present illness. Medications Home Meds Reported Medications Folic Acid* (Folic Acid*) 1 Mg Tablet, 1 MG PO DAILY, TAB 11/13/16 Levothyroxine Sodium* (Levothyroxine Sodium*) 25 Mcg Tablet, 1 TAB PO DAILY, #30 11/10/16 Discontinued Scripts Hydrocodone/Acetaminophen ([place] 5-325 Tablet) 1 Each Tablet, 1 TAB PO Q6H Y for PAIN, #20 TAB Prov:CARMEN,MELAINE C 12/16/16 Ibuprofen* (Motrin*) 600 Mg Tab, 600 MG PO Q6, #30 TAB Prov:CARMEN,MELANIE C 12/16/16 Ibuprofen* (Motrin*) 600 Mg Tab, 600 MG PO Q6, #16 TAB Prov:JOVANI MUHAMMAD MD 04/11/16 Allergies Allergies: Coded Allergies: No Known Drug Allergies (Verified Allergy, Unknown, 12/19/16) PMhx/Soc Positive for thyroid disease and stroke History of Surgery: No Anesthesia Reaction: No Hx Neurological Disorder: No Hx Respiratory Disorders: No Hx Cardiac Disorders: No Hx Psychiatric Problems: No Hx Miscellaneous Medical Probl: No Hx Alcohol Use: No Hx Substance Use: No Hx Tobacco Use: No Smoking Status: Never smoker FmHx Family History: diabetes Physical Exam Vitals Vital Signs Date Time Temp Pulse Resp B/P Pulse Ox O2 Delivery O2 Flow Rate FiO2 12/19/16 11:30 98.2 82 18 110/82 100 12/19/16 09:15 Nasal Cannula 2 12/19/16 09:05 97.9 101 18 108/71 100 Physical Exam Const: Mild distress secondary to right leg pain Head: Atraumatic Eyes: Normal Conjunctiva ENT: Normal External Ears, Nose and Mouth. Neck: Full range of motion..~ No meningismus. Resp: Clear to auscultation bilaterally Cardio: Regular rate and rhythm, no murmurs Abd: Soft, non tender, non distended. Normal bowel sounds Skin: No petechiae or rashes Back: No midline or flank tenderness Ext: Exquisite pain to the right calf without signs of cellulitis or abscess formation Neur: Awake and alert Psych: Normal Mood and Affect Result Diagram: 12/19/16 0935 12/19/16 0935 Results 24 hrs Laboratory Tests Test 12/19/16 09:35 12/19/16 09:50 12/19/16 11:50 Activated Partial Thromboplast Time 26.6Sec Alanine Aminotransferase (ALT/SGPT) 21IU/L Albumin 4.1g/dl Albumin/Globulin Ratio 1.20 Alkaline Phosphatase 71IU/L Anion Gap 17 Aspartate Amino Transf (AST/SGOT) 20IU/L Basophils # 0.010^3/ul Basophils % 0.6% Blood Urea Nitrogen 13mg/dl C-Reactive Protein 1.2mg/dl Calcium Level 9.1mg/dl Carbon Dioxide Level 29mmol/L Chloride Level 105mmol/L Creatine Kinase 45IU/L Creatine Kinase Index 0.5 Creatinine 0.76mg/dl Creatinine Kinase MB (Mass) 0.23ng/ml Direct Bilirubin 0.00mg/dl Eosinophils # 0.110^3/ul Eosinophils % 1.7% Globulin 3.40g/dl Glucose Level 85mg/dl Hematocrit 40.6% Hemoglobin 13.5g/dl INR International Normalized Ratio 0.89 Indirect Bilirubin 0.5mg/dl Lactic Acid Level 1.4mmol/L 0.6mmol/L Lymphocytes # 2.110^3/ul Lymphocytes % 31.6% Mean Corpuscular Hemoglobin 30.1pg Mean Corpuscular Hemoglobin Concent 33.3g/dl Mean Corpuscular Volume 90.6fl Mean Platelet Volume 10.2fl Monocytes # 0.310^3/ul Monocytes % 4.7% Neutrophils # 4.110^3/ul Neutrophils % 61.1% Nucleated Red Blood Cells # 0.010^3/ul Nucleated Red Blood Cells % 0.0/100WBC Platelet Count 45515^3/UL Potassium Level 4.2mmol/L Prothrombin Time 12.0Sec Prothrombin Time Ratio 0.9 Red Blood Count 4.4810^6/ul Red Cell Distribution Width 11.9% Sodium Level 147mmol/L Total Bilirubin 0.5mg/dl Total Protein 7.5g/dl Troponin I < 0.012ng/ml White Blood Count 6.610^3/ul Urine Bacteria FEW Urine Bilirubin NEGATIVE Urine Clarity CLEAR Urine Color LT. YELLOW Urine Epithelial Cells MODERATE Urine Glucose NEGATIVE% Urine Hemoglobin TRACE Urine Ketones NEGATIVE Urine Leukocyte Esterase NEGATIVE Urine Microscopic RBC 0-2/HPF Urine Microscopic WBC 2-5/HPF Urine Nitrite NEGATIVE Urine Specific [place] 1.025 Urine Total Protein NEGATIVE Urine Urobilinogen 0.2 E.U./dL Urine pH 5.5 Current Medications Medications (Trade) Dose Ordered Sig/Manju Route PRN Reason Start Time Stop Time Status Last Admin Dose Admin Sodium Chloride 2020 ml 2,020 ml BOLUS OVER 2 HOURS STAT IV* 12/19/16 09:12 12/19/16 09:15 DC 12/19/16 10:08 Cefepime HCl 50 ml @ 100 mls/hr ONCE STAT IVPB 12/19/16 09:12 12/19/16 09:41 DC 12/19/16 10:08 Vancomycin HCl (Vancocin) 250 ml @ 125 mls/hr ONCE ONCE IVPB 12/19/16 09:30 12/19/16 11:29 DC 12/19/16 11:35 Hydromorphone HCl (Dilaudid) 1 mg ONCE STAT IV 12/19/16 09:27 12/19/16 09:28 DC 12/19/16 10:07 Ondansetron HCl (Zofran Inj) 4 mg ONCE STAT IV 12/19/16 09:27 12/19/16 09:28 DC 12/19/16 10:07 Ondansetron HCl (Zofran Inj) 4 mg BRIDGE ORDER PRN IV NAUSEA AND/OR VOMITING 12/19/16 11:30 12/20/16 11:29 Acetaminophen (Tylenol Tab) 650 mg ER BRIDGE PRN PO MILD PAIN/FEVER 12/19/16 11:30 12/20/16 11:29 Hydromorphone HCl (Dilaudid) 1 mg ONCE STAT IV 12/19/16 11:56 12/19/16 11:57 DC 12/19/16 12:13 Procedures/MDM MRI of the right lower extremities negative per radiology. Chest x-ray negative per radiology. Patient is a 26-year-old female who presents with right calf pain. This is her third visit to the ER and a short amount of time and I do believe the patient needs admission. I am concerned for myositis with fevers and a previously elevated white blood cell count and ESR. Her white count today is normal. She does not have a fever in the emergency department. Cultures are pending. She was given broad-spectrum antibiotics with vancomycin and cefepime. MRI does not show any sign of abscess at this time. She has required multiple doses of pain medicine. She will be admitted to the panel team to a medical surgical bed. Departure Diagnosis: Primary Impression: Leg pain Qualified Code: M79.604 - Pain of right lower extremity Additional Impression: Myositis Qualified Code: M60.861 - Myositis of right lower extremity, unspecified myositis type Condition: ADAM Mathew MD Dec 19, 2016 13:04
[2016-12-19 13:29] VITALS: PULSE 78; TEMP 98.2
[2016-12-19 15:28] VITALS: Ht 162.6 cm; Wt 64.9 kg
[2016-12-19] MEDS: HYDROCODONE/APAP (5/325) TAB PO PRN ×2 (16:16→21:33)
[2016-12-19 17:07] VITALS: BP 109/68; RESP 18
[2016-12-19] MEDS ORDERED: DOCUSATE SODIUM 100 MG CAP PO PRN (18:30)
[2016-12-19] MEDS ORDERED: NACL 0.9% 3 ML SYG IV SCH (18:30)
[2016-12-19] MEDS ORDERED: ZOLPIDEM 5 MG TAB PO PRN (18:30)
--- NOTE | 2016-12-19 18:39 | HP ---
DATE OF ADMISSION: 12/19/2016 CHIEF COMPLAINT: Right leg pain. 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 The patient had a recent right ankle fracture repair after having a frac ture from an accident. The patient has been experiencing pain in that right calf for several days n ow. She did present to the ED recently, where she had an extremity venous study that showed no DVT. She did have an elevated white blood cell count and was told to come back the following day, where labs were drawn again and her white count had resolved. She went to her orthopedic physician today , Dr. Chau, who appeared to note that the ESR was elevated and was concerned for myositis. The tony cool was told to report to the ED, where she had an MRI of the right leg that was unremarkable. Th e patient was admitted for further observation. The patient at this time does continue to complain of some right leg pain. She has no other acute issues. PAST MEDICAL HISTORY: As per HPI. PAST SURGICAL HISTORY: Recent right ankle fracture repair. HOME MEDICATIONS: 1. Folic acid. 2. Synthroid. ALLERGIES: NO KNOWN DRUG ALLERGIES. FAMILY HISTORY: Noncontributory. SOCIAL HISTORY: Denies alcohol, tobacco or drugs. REVIEW OF SYSTEMS: A 12-point review of systems negative except for that as mentioned in HPI. PHYSICAL EXAMINATION: VITAL SIGNS: Temperature is 98.2, pulse 72, respiration rate is 18, BP is 109/68, saturation 96% on room air. GENERAL: No acute distress. Alert, oriented. HEENT: Normocephalic, atraumatic. CHEST: Clear to auscultation. CARDIOVASCULAR: Regular rate and rhythm. ABDOMEN: Nondistended, nontender, soft. EXTREMITIES: No clubbing, cyanosis or edema. Tenderness to palpation in the right calf. LABORATORIES: CBC is within normal limits. Chemistry within normal limits except for sodium slight ly elevated at 147. CRP is slightly elevated at 1.2. ESR was 44. UA is within normal limits. DIAGNOSTICS: Lower extremity MRI was negative. Lower extremity ultrasound a few days back was nega tive for DVT. Chest x-ray is normal. ASSESSMENT AND PLAN: 1. Right leg pain. Etiology is unclear at this time. MRI is negative for myositis. No evidence o f infection at this time. DVT has been ruled out on a prior ER visit a few days ago. Will check a magnesium to see if that is etiology of the pain. Will give pain medications in order to control th e pain. 2. Recent right ankle fracture repair. No acute issues at this time. 3. History of anxiety, stable. 4. Prophylaxis. Ambulation. Dictated By: VIVIANE PHILLIPS MD BS/NTS Conf#: [id number] DID#: [id number]
[2016-12-19 20:11] VITALS: BP 117/81; RESP 20
[2016-12-20 05:23] LABS: ADD SCAN DIFF NO
[2016-12-20 05:52] LABS: POTASSIUM 3.9 mmol/L (3.5-5.1)
[2016-12-20 05:54] LABS: CREATININE 0.78 mg/dl (0.44-1.00)
[2016-12-20 05:55] LABS: CALCIUM 8.6 mg/dl (8.4-10.2); MAGNESIUM 1.9 mg/dl (1.7-2.5); PHOSPHORUS 4.1 mg/dl (2.5-4.9)
[2016-12-20 06:00] LABS: T3 UPTAKE 37.2 % (23.5-40.5)
[2016-12-20 07:03] LABS: BASOPHILS % 0.7 % (0.0-2.0); EOSINOPHILS # 0.2 10^3/ul (0.0-0.5); EOSINOPHILS % 3.6 % (0.0-7.0); HEMATOCRIT 36.2 % (37.0-47.0); HEMOGLOBIN 12.2 g/dl (12.0-16.0); LYMPHOCYTES # 2.7 10^3/ul (0.8-2.9); LYMPHOCYTES % 43.4 % (15.0-51.0); MEAN CORPUSCULAR HEMOGLOBIN 30.7 pg (29.0-33.0); MEAN CORPUSCULAR HGB CONC 33.7 g/dl (32.0-37.0); MEAN CORPUSCULAR VOLUME 91.2 fl (82.0-101.0); MEAN PLATELET VOLUME 10.5 fl (7.4-10.4); MONOCYTE # 0.4 10^3/ul (0.3-0.9); MONOCYTES % 6.1 % (0.0-11.0); NEUTROPHIL # 2.8 10^3/ul (1.6-7.5); NEUTROPHILS % 45.9 % (39.0-77.0); PLATELET COUNT 286 10^3/UL (140-415); RED BLOOD COUNT 3.97 10^6/ul (4.20-5.40); RED CELL DISTRIBUTION WIDTH 11.8 % (11.5-14.5); WHITE BLOOD COUNT 6.1 10^3/ul (4.8-10.8)
[2016-12-20] MEDS ORDERED: LEVOTHYROXINE 25 MCG TAB PO SCH (07:20)
[2016-12-20 07:54] VITALS: BP 107/72; RESP 16
[2016-12-20] MEDS: morphine 2 MG INJ IV PRN ×3 (08:43→17:40)
[2016-12-20] MEDS ORDERED: FOLIC ACID 1 MG TAB PO SCH (09:00)
[2016-12-20] MEDS ORDERED: INFLUENZA VIRUS VACCINE 0.5 ML (DISPENSING) IM* ONE (09:00)
[2016-12-20] MEDS ORDERED: ENOXAPARIN 40 MG/0.4 ML SYG SC SCH (09:00)
[2016-12-20] MEDS: HYDROCODONE/APAP (5/325) TAB PO PRN ×2 (11:01→16:22)
--- NOTE | 2016-12-20 12:27 | PDOCDIS ---
Discharge Instructions CONDITION Patient Condition: Good HOME CARE INSTRUCTIONS: Diet Instructions: Regular ACTIVITY: Activity Restrictions: Slowly Increase Activity Rest between Activity Bathing Restrictions: VIVIANE Daugherty Dec 20, 2016 12:26
--- NOTE | 2016-12-20 14:34 | CONS ---
Date/Time of Note Date/Time of Note DATE: 12/20/16 TIME: 14:34 Assessment/Plan Assessment/Plan Additional Assessment/Plan 26-year-old female with right calf pain status post right ankle surgery 6 weeks ago now with a positive flu swab for influenza B and recent history of elevated white count, ESR, CRP. Currently the patient's white count ESR and CRP have resolved and her fever has resolved with 1 dose of vancomycin over the past 24 hours. Recent MRI shows no evidence of any myositis or fluid collection in her right calf. My concern at this point would be to rule out a DVT, although there was already an ultrasound that ruled out 3 days ago, I prefer to have a repeat right ultrasound duplex Doppler to rule out DVT. I have a low concern at this time for any sort of inflammation or infection in her postoperative wound and my preference would be for patient to get the ultrasound to rule out DVT and if negative patient can continue with her postoperative rehabilitation program per my protocol. Patient can follow-up with me in the outpatient setting approximately 2-3 weeks. Consultation Date/Type/Reason Admit Date/Time Dec 19, 2016 at 11:08 Date of Consultation: Dec 20, 2016 Type of Consultation: Orthopedic Surgery Reason for Consultation calf pain Referring Provider: VIVIANE PHILLIPS of Present Illness Patient is a 26-year-old female who was admitted yesterday for evaluation status post 104 temperature and right calf pain. Orthopedics was consulted today for further evaluation of her right calf pain and concern for possible myositis and status post patient having a right ankle arthroscopic surgery for osteochondral lesion of the talus. Patient reports that her fever has resolved however she is still expressing deep calf pain. She denies any shortness of breath rapid heart rate or chest pain. She reports her fever has resolved. Constitutional: improved, no complaints Musculoskeletal: other (Calf pain) Past Medical History Medical History: no pertinent history Past Surgical History 6 weeks status post right ankle arthroscopic surgery Family History Significant Family History: no pertinent family hx Social History Alcohol Use: none Smoking Status: Never smoker Drug Use: none Exam/Review of Systems Vital Signs Vitals Vital Signs Date Time Temp Pulse Resp B/P Pulse Ox O2 Delivery O2 Flow Rate FiO2 12/20/16 07:54 97.9 89 16 107/72 98 12/19/16 13:29 Room Air 12/19/16 09:15 2 Intake and Output 12/19/16 12/19/16 12/20/16 15:00 23:00 07:00 Intake Total 2320 ml 470 ml 700 ml Output Total 600 ml 800 ml Balance 2320 ml -130 ml -100 ml Exam Constitutional: alert, oriented, well developed Musculoskeletal: other (Right lower; patient has full active ankle dorsi flexion, plantar flexion, eversion and inversion. Patient has 5 out of 5 strength to her right ankle. Patient has pain along her right calf along the proximal medial aspect of her gastroc most tender along the midportion. She has no evidence of any wound problems in her right ankle and there is no erythema, warmth, drainage. She has no overlying erythema at her calf. She has full sensation intact to light touch of the medial, lateral, dorsal, plantar , first dorsal webspace distribution.) Results Result Diagram: 12/20/16 0418 12/20/16 0418 Results 24 hrs Laboratory Tests Test 12/19/16 15:30 12/19/16 19:05 12/20/16 04:18 Lactic Acid Level 1.0 Magnesium Level 1.8 1.9 Anion Gap 14 Basophils # 0.0 Basophils % 0.7 Blood Urea Nitrogen 12 Calcium Level 8.6 Carbon Dioxide Level 29 Chloride Level 104 Creatinine 0.78 Eosinophils # 0.2 Eosinophils % 3.6 Erythrocyte Sedimentation Rate 25 H Free Thyroxine Index 3.01 Glucose Level 91 Hematocrit 36.2 L Hemoglobin 12.2 Hemoglobin A1c 4.9 Lymphocytes # 2.7 Lymphocytes % 43.4 Mean Corpuscular Hemoglobin 30.7 Mean Corpuscular Hemoglobin Concent 33.7 Mean Corpuscular Volume 91.2 Mean Platelet Volume 10.5 H Monocytes # 0.4 Monocytes % 6.1 Neutrophils # 2.8 Neutrophils % 45.9 Nucleated Red Blood Cells # 0.0 Nucleated Red Blood Cells % 0.0 Phosphorus Level 4.1 Platelet Count 286 Potassium Level 3.9 Red Blood Count 3.97 L Red Cell Distribution Width 11.8 Sodium Level 143 Thyroxine (T4) 8.1 Triiodothyronine (T3) Uptake 37.2 White Blood Count 6.1 Medications Medications Current Medications Acetaminophen/ Hydrocodone Bitart ([place] (5/325)) 1 tab Q4H PRN PO PAIN LEVEL 4 -6 Last administered on 12/20/16t 11:01; Admin Dose 1 TAB; Start 12/19/16 at 16: 00 Ondansetron HCl (Zofran Inj) 4 mg Q6H PRN IV NAUSEA AND/OR VOMITING; Start at 18:30 Acetaminophen (Tylenol Tab) 650 mg Q6H PRN PO PAIN LEVEL 1-3 OR FEVER; Start at 18:30 Morphine Sulfate (morphine) 2 mg Q4H PRN IV SEVERE PAIN LEVEL 7-10 Last administered on 12/20/16 13:00; Admin Dose 2 MG; Start 12/19/16 at 18:30 Docusate Sodium (Colace) 100 mg Q12H PRN PO CONSTIPATION; Start 12/19/16 at 18: 30 Zolpidem Tartrate (Ambien) 5 mg QHS PRN PO SLEEP; Start 12/19/16 at 18:30 Enoxaparin Sodium (Lovenox) 40 mg DAILY SC Last administered on 12/20/16 08:55 ; Admin Dose 40 MG; Start 12/20/16 at 09:00 Folic Acid (Folic Acid) 1 mg DAILY PO Last administered on 12/20/16 08:47; Admin Dose 1 MG; Start 12/20/16 at 09:00 ANITA RAMSEY MD Dec 20, 2016 14:34
--- NOTE | 2016-12-20 15:58 | RADRPT ---
PROCEDURE: Ultrasound of the right lower extremity venous system. CLINICAL INDICATION: Right leg pain and swelling, deep venous thrombosis TECHNIQUE: Veliz scale with and without compression, color doppler, spectral doppler of the venous system of the right lower extremity was performed. Venous augmentation maneuvers were utilized. COMPARISON: 12/16/2016 FINDINGS: Common femoral vein: Patent. Femoral vein: Patent. Popliteal vein: Patent. Calf veins: Patent. No soft tissue abnormalities are identified. IMPRESSION: No evidence of a deep vein thrombosis within the right lower extremity. RPTAT: AADD .Josep Dickey MD, MD Date Time Electronically viewed and signed by .Josep Dickey MD, MD on 12/20/2016 15:57 .B/
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
== END 2016-12-20 18:30 | disposition home or self-care (01) | DRG 556 ==
LOC: E/R 08:59 → MS1 11:08
PROVIDERS: ADMIT Family Medicine; ATTEND Family Medicine
DX: M62.831 Muscle spasm of calf (principal); F41.9 Anxiety disorder, unspecified; M79.661 Pain in right lower leg; Z98.890 Other specified postprocedural states
CPT/HCPCS: 36415; 71010; 73720; 80048; 80053; 81001; 81003; 82550; 82553; 83036; 83605; 83735; 84100; 84436; 84479; 84484; 85025; 85610; 85651; 85730; 86140; 87040; 87086; 87400; 90686; 93005; 93971; 96365; 96366; 96367; 96375; 96376; J0692; J1170; J1650; J2270; J2405; J3370; J7030

== ENCOUNTER 2017-01-12 14:45 | Emergency (ER) | payer BC ==
[~2017-01-12] VITALS: Ht 162.6 cm; Wt 65.0 kg
[~2017-01-12 14:45] MED LIST changes: -HYDR-906 PO; -IBUP-1542 PO
[2017-01-12 14:47] VITALS: Ht 162.6 cm; Wt 65.0 kg
[2017-01-12] MEDS ORDERED: HYDROCODONE/APAP (5/325) TAB PO ONE (15:30)
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
[2017-01-12] MEDS ORDERED: HYDR-906 PO (16:19)
[2017-01-12] MEDS ORDERED: CYCL-319 PO (16:20)
[2017-01-12] MEDS ORDERED: NAPR-260 PO (16:20)
--- NOTE | 2017-01-12 17:40 | RADRPT ---
AMENDMENT: 01/12/2017 5:42:14 PM Helder Anderson M.d In addition there is mild widening of the prevertebral space anterior to C6-C7. Again this should b e further evaluated with a CT. PROCEDURE: XR Cervical Spine. CLINICAL INDICATION: pain TECHNIQUE: AP, lateral and odontoid views of the cervical spine were performed. The images were re viewed on a PACS workstation. COMPARISON: None. FINDINGS: There is reversal of the cervical lordosis. There is asymmetry of the distance between the dens and the lateral mass of C1, measuring 7 mm on th e left, compared to 5 mm on the right. The vertebral body alignment, height and osseous mineralization are normal. The intervertebral disc spaces are well maintained. There are no abnormal calcifications. The prevertebral soft tissues are normal. No radiopaque foreign bodies are identified. RPTAT: AA IMPRESSION: Reversal of the cervical lordosis. Asymmetry of the distance between the dens and the lateral mass of C1, measuring 7 mm on the left an d 5 mm on the right. This may be positional, however, a fracture or ligamentous injury is not exclu ded and a CT of the cervical spine is recommended. .Helder Adnerson MD, MD Date Time Electronically viewed and signed by .Helder Anderson MD, MD on 01/12/2017 17:43 .S/
--- NOTE | 2017-01-12 17:41 | RADRPT ---
PROCEDURE: XR Lumbar Spine. CLINICAL INDICATION: back pain TECHNIQUE: AP, lateral and cone-down lateral view of the lumbar spine were obtained. COMPARISON: No prior studies are available for comparison. FINDINGS: There is normal vertebral mineralization and alignment. No fracture or subluxation is seen. The disc spaces are normal in appearance. The posterior elements are unremarkable. The soft tissues appear normal. RPTAT: AA IMPRESSION: Unremarkable lumbar spine. .Helder Anderson MD, MD Date Time Electronically viewed and signed by .Helder Anderson MD, on 01/12/2017 17:41 .S/
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
[2017-01-12 19:51] VITALS: BP 125/80; PULSE 82; RESP 18; TEMP 98.6
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
== END 2017-01-12 19:52 | disposition home or self-care (01) ==
LOC: FTE 14:45
DX: S19.9XXA Unspecified injury of neck, initial encounter (principal); S39.92XA Unspecified injury of lower back, initial encounter; E03.9 Hypothyroidism, unspecified; V49.50XA Passenger injured in collision with unspecified motor vehicles in traffic accident, initial encounter
CPT/HCPCS: 72040; 72100; 72125; Z7502; Z7610

== ENCOUNTER 2017-02-10 10:20 | Emergency (ER) | payer BC ==
[~2017-02-10] VITALS: Ht 160 cm; Wt 78.2 kg
[~2017-02-10 10:20] MED LIST changes: +CYCL-319 PO; +HYDR-906 PO; +NAPR-260 PO
[2017-02-10 10:24] VITALS: Ht 160 cm; Wt 78.2 kg
[2017-02-10] MEDS ORDERED: DIPHENHYDRAMINE 50 MG INJ IV ONE ×2 (11:00→11:30)
[2017-02-10] MEDS ORDERED: SOD CHLORIDE 0.9% 1,000 ML IV ONE (11:00)
[2017-02-10] MEDS ORDERED: FAMOTIDINE 20 MG INJ IV ONE (11:00)
[2017-02-10] MEDS ORDERED: METHYLPREDNISOLONE 125 MG INJ IV ONE (11:00)
[2017-02-10] MEDS ORDERED: PRED20TA PO (12:19)
[2017-02-10] MEDS ORDERED: BEN25 PO (12:21)
[2017-02-10] MEDS ORDERED: LORAZEPAM 2 MG INJ IV ONE (12:30)
[2017-02-10 12:42] VITALS: BP 112/84; PULSE 84; RESP 18
--- NOTE | 2017-02-10 14:26 | ERD ---
ER Documentation Chief Complaint Date/Time DATE: 02/10/17 TIME: 14:23 Chief Complaint rash and icthing x 3 days HPI This is a 26-year-old female presents to the ER with an itchy rash for the last 3 days. Patient denies any shortness of breath, tongue, eyes, lips. Patient denies any new contact with any new medications food or substances. Patient did travel to [place] last weekend. Patient denies any fevers or chills. She denies any cough or cold symptoms. Denies any nausea vomiting or diarrhea. Patient has been trying Benadryl however has not worked. ROS 12 point review of systems was done, all negative except per HPI. Medications Home Meds Active Scripts Diphenhydramine Hcl* (Benadryl*) 25 Mg Cap, 25 MG PO Q6, #30 CAP Prov:MELANIE MORALES 02/10/17 Prednisone* (Prednisone*) 20 Mg Tab, 60 MG PO DAILY for 4 Days, TAB Prov:MELANIE MORALES 02/10/17 Cyclobenzaprine Hcl* (Cyclobenzaprine Hcl*) 10 Mg Tablet, 10 MG PO QHS, #7 TAB Prov:LAURA CARROLL PA-C 01/12/17 Naproxen* (Naprosyn*) 500 Mg Tablet, 500 MG PO BID Y for PAIN AND/OR INFLAMMATION, #30 TAB Prov:LAURA CARROLL PA-C 01/12/17 Hydrocodone/Acetaminophen ([place] 5-325 Tablet) 1 Each Tablet, 1 TAB PO Q6H Y for PAIN, #10 TAB Prov:LAURA CARROLL PA-C 01/12/17 Reported Medications Folic Acid* (Folic Acid*) 1 Mg Tablet, 1 MG PO DAILY, TAB 11/13/16 Levothyroxine Sodium* (Levothyroxine Sodium*) 25 Mcg Tablet, 1 TAB PO DAILY, #30 11/10/16 Allergies Allergies: Coded Allergies: No Known Drug Allergies (Verified Allergy, Unknown, 02/10/17) PMhx/Soc History of Surgery: Yes (right ankle) Anesthesia Reaction: No Hx Neurological Disorder: Yes (stroke 2010, cerebral palsy 2009) Hx Respiratory Disorders: No Hx Cardiac Disorders: No Hx Psychiatric Problems: No Hx Miscellaneous Medical Probl: No Hx Alcohol Use: Yes (socially) Hx Substance Use: No Hx Tobacco Use: No Physical Exam Vitals Vital Signs Date Time Temp Pulse Resp B/P Pulse Ox O2 Delivery O2 Flow Rate FiO2 02/10/17 12:42 84 18 112/84 100 Room Air 02/10/17 10:24 98.1 76 18 140/76 99 Physical Exam GENERAL: The patient is well developed and appropriate for usual state of health , in no apparent distress. HEENT: Atraumatic. No lip, tongue, eyes swelling. CHEST: Clear to auscultation bilaterally. There are no rales, wheezes or rhonchi. HEART: Regular rate and rhythm. No murmurs, clicks, rubs or gallops. NEURO: Alert and oriented. SKIN: Hives all over the body. Results 24 hrs Current Medications Medications (Trade) Dose Ordered Sig/Manju Route PRN Reason Start Time Stop Time Status Last Admin Dose Admin Sodium Chloride (NS) 1,000 ml @ 1,000 mls/hr Q1H ONCE IV 02/10/17 11:00 02/10/17 11:59 DC 02/10/17 11:08 Methylprednisolone Sodium Succinate (Solu-Medrol) 80 mg ONCE ONCE IV 02/10/17 11:00 02/10/17 11:01 DC 02/10/17 11:08 Diphenhydramine HCl (Benadryl) 50 mg ONCE ONCE IV 02/10/17 11:00 02/10/17 11:14 DC Famotidine (Pepcid Iv) 20 mg ONCE ONCE IV 02/10/17 11:00 02/10/17 11:01 DC 02/10/17 11:08 Diphenhydramine HCl (Benadryl) 25 mg ONCE ONCE IV 02/10/17 11:30 02/10/17 11:31 DC 02/10/17 11:17 Lorazepam (Ativan) 0.5 mg ONCE ONCE IV 02/10/17 12:30 02/10/17 12:31 DC 02/10/17 12:38 Procedures/MDM Differential Diagnosis: dermatitis, allergic urticaria, viral exanthem, insect bite, fungal infection ,viral exanthem, hand foot mouth disease, , impetigo, cellulitis, abscess, levi tyrel syndrome, meningocemia, necrotizing fasciitis,This is likely an allergic reaction. Patient did have hives all over her body which were very itchy. Patient was treated with IV fluids, Solu-Medrol , Benadryl, famotidine. Patient was stable throughout the ER course she did develop some chest pain which is likely secondary to Solu-Medrol because of this EKG was taken at [address] elevation or T-wave inversion this EKG was read by Dr. Romo. Patient was given Ativan in the ER and felt significantly better afterwards. Her itching was much improved and rash was improved as well. At this time I do not believe patient have any severe allergic reaction she does not have any difficulty in breathing and is not hypoxic and is extremely well-appearing. Patient will be sent home with a short course of steroids and Benadryl. She needs to follow-up with her primary care doctor within 1-2 days return to ER sooner if symptoms worsen. My medical decision making was shared with the patient she understands and agrees with plan. Departure Diagnosis: Primary Impression: Rash Condition: Stable Patient Instructions: Self-Care for Skin Rashes Referrals: ANTON CERVANTES (PCP) Additional Instructions: Call your primary care doctor TOMORROW for an appointment during the next 1-2 days.See the doctor sooner or return here if your condition worsens before your appointment time. MELANIE MORALES February 10, 2017 14:26
== END 2017-02-10 13:00 | disposition home or self-care (01) ==
LOC: FTE 10:20
DX: R21 Rash and other nonspecific skin eruption (principal); E03.9 Hypothyroidism, unspecified; R94.31 Abnormal electrocardiogram [ECG] [EKG]
CPT/HCPCS: 93005; 96361; 96374; 96375; J1200; J2060; J2930; J7030; Z7502; Z7610

== ENCOUNTER 2017-04-23 14:04 | Emergency (ER) | payer BC ==
[~2017-04-23] VITALS: Wt 65.0 kg
[~2017-04-23 14:04] MED LIST changes: +BEN25 PO; +PRED20TA PO
[2017-04-23] MEDS ORDERED: ONDANSETRON 4 MG INJ IV STA (14:38)
[2017-04-23] MEDS ORDERED: KETOROLAC 30 MG INJ IV STA (14:38)
[2017-04-23] MEDS ORDERED: SOD CHLORIDE 0.9% 1,000 ML IV STA (14:38)
--- NOTE | 2017-04-23 14:44 | ERD ---
ER Documentation Chief Complaint Date/Time DATE: 04/23/17 TIME: 14:40 Chief Complaint LOWER ABD PAIN FOR THE PAST 3 DAYS. N/V. WITH NO VAG BLEEDING NOTED. HPI This is a 27-year-old female presents emergency department with lower abdominal pain with nausea, vomiting and diarrhea 3 days. Patient states she is having lower abdominal pain rating pain 8/10 that does not radiate. Patient has had severe nausea with 2 episodes of nonbloody nonbilious emesis over the last 3 days. Patient has had 3-4 episodes of nonbloody loose stool every day for the past 3 days. No melena. No fevers or chills. No upper abdominal pain. Last menstrual period March 05. Patient states she has very irregular periods. Last bowel movement was 11 AM this morning. No constipation. Patient states she is concerned because she has a history of HPV. ROS All systems reviewed and are negative except as per history of present illness. Medications Home Meds Active Scripts Acetaminophen* (Tylenol*) 325 Mg Tablet, 1 TAB PO Q6 Y for PAIN AND OR ELEVATED TEMP, #20 TAB Prov:RHONA KEMP NP 04/23/17 Ondansetron Hcl* (Zofran*) 4 Mg Tablet, 4 MG PO Q6H for NAUSEA AND/OR VOMITING, #10 TAB Prov:RHONA KEMP NP 04/23/17 Diphenhydramine Hcl* (Benadryl*) 25 Mg Cap, 25 MG PO Q6, #30 CAP Prov:MELANIE MORALES 02/10/17 Prednisone* (Prednisone*) 20 Mg Tab, 60 MG PO DAILY for 4 Days, TAB Prov:MELANIE MORALES 02/10/17 Cyclobenzaprine Hcl* (Cyclobenzaprine Hcl*) 10 Mg Tablet, 10 MG PO QHS, #7 TAB Prov:LAURA CARROLL PA-C 01/12/17 Naproxen* (Naprosyn*) 500 Mg Tablet, 500 MG PO BID Y for PAIN AND/OR INFLAMMATION, #30 TAB Prov:LAURA CARROLL PA-C 01/12/17 Hydrocodone/Acetaminophen ([place] 5-325 Tablet) 1 Each Tablet, 1 TAB PO Q6H Y for PAIN, #10 TAB Prov:LAURA CARROLL PA-C 01/12/17 Reported Medications Folic Acid* (Folic Acid*) 1 Mg Tablet, 1 MG PO DAILY, TAB 11/13/16 Levothyroxine Sodium* (Levothyroxine Sodium*) 25 Mcg Tablet, 1 TAB PO DAILY, #30 11/10/16 Allergies Allergies: Coded Allergies: No Known Drug Allergies (Verified Allergy, Unknown, 02/10/17) PMhx/Soc Ovarian cyst HPV History of Surgery: No Anesthesia Reaction: No Hx Neurological Disorder: No Hx Respiratory Disorders: No Hx Cardiac Disorders: No Hx Psychiatric Problems: No Hx Miscellaneous Medical Probl: Yes Hx Alcohol Use: No Hx Substance Use: No Hx Tobacco Use: No Smoking Status: Never smoker Physical Exam Vitals Vital Signs Date Time Temp Pulse Resp B/P Pulse Ox O2 Delivery O2 Flow Rate FiO2 04/23/17 14:09 99.0 86 20 144/89 99 Physical Exam Const: Alert, no acute distress Head: Atraumatic Eyes: Normal Conjunctiva ENT: Normal External Ears, Nose and Mouth. Neck: Full range of motion..~ No meningismus. Resp: Clear to auscultation bilaterally. No wheezing, rhonchi or crackles. Cardio: Regular rate and rhythm, no murmurs Abd: Soft, non tender, non distended. Normal bowel sounds. Negative Lundy sign. Negative rebound tenderness Skin: No petechiae or rashes Back: No midline or flank tenderness. No CVA tenderness Ext: No cyanosis, or edema Neur: Awake and alert Psych: Normal Mood and Affect Result Diagram: 04/23/17 1453 04/23/17 1453 Results 24 hrs Laboratory Tests Test 04/23/17 14:53 White Blood Count 11.710^3/ul Red Blood Count 4.9310^6/ul Hemoglobin 15.1g/dl Hematocrit 44.5% Mean Corpuscular Volume 90.3fl Mean Corpuscular Hemoglobin 30.6pg Mean Corpuscular Hemoglobin Concent 33.9g/dl Red Cell Distribution Width 12.3% Platelet Count 11964^3/UL Mean Platelet Volume 10.6fl Neutrophils % 65.6% Lymphocytes % 27.9% Monocytes % 4.8% Eosinophils % 0.9% Basophils % 0.5% Nucleated Red Blood Cells % 0.0/100WBC Neutrophils # 7.710^3/ul Lymphocytes # 3.310^3/ul Monocytes # 0.610^3/ul Eosinophils # 0.110^3/ul Basophils # 0.110^3/ul Nucleated Red Blood Cells # 0.010^3/ul Urine Color YELLOW Urine Clarity SLIGHTLY CLOUDY Urine pH 6.0 Urine Specific [place] 1.024 Urine Ketones NEGATIVEmg/dL Urine Nitrite NEGATIVEmg/dL Urine Bilirubin NEGATIVEmg/dL Urine Urobilinogen NEGATIVEmg/dL Urine Leukocyte Esterase NEGATIVELeu/ul Urine Microscopic RBC 1/HPF Urine Microscopic WBC 2/HPF Urine Squamous Epithelial Cells FEW/HPF Urine Calcium Oxalate Crystals MODERATE/HPF Urine Mucus FEW/HPF Urine Hemoglobin NEGATIVEmg/dL Urine Glucose NEGATIVEmg/dL Urine Total Protein NEGATIVEmg/dl Sodium Level 141mmol/L Potassium Level 4.2mmol/L Chloride Level 103mmol/L Carbon Dioxide Level 25mmol/L Anion Gap 17 Blood Urea Nitrogen 13mg/dl Creatinine 0.81mg/dl Glucose Level 87mg/dl Calcium Level 9.4mg/dl Total Bilirubin 0.4mg/dl Direct Bilirubin 0.00mg/dl Indirect Bilirubin 0.4mg/dl Aspartate Amino Transf (AST/SGOT) 32IU/L Alanine Aminotransferase (ALT/SGPT) 26IU/L Alkaline Phosphatase 63IU/L Total Protein 8.1g/dl Albumin 4.4g/dl Globulin 3.70g/dl Albumin/Globulin Ratio 1.18 Lipase 208U/L Beta HCG, Quantitative 167.8mIU/ml Current Medications Medications (Trade) Dose Ordered Sig/Manju Route PRN Reason Start Time Stop Time Status Last Admin Dose Admin Sodium Chloride (NS) 1,000 ml @ 1,000 mls/hr Q1H STAT IV 04/23/17 14:38 04/23/17 15:37 DC 04/23/17 14:56 Ondansetron HCl (Zofran Inj) 4 mg ONCE STAT IV 04/23/17 14:38 04/23/17 14:40 DC 04/23/17 14:58 Ketorolac Tromethamine (Toradol) 30 mg ONCE STAT IV 04/23/17 14:38 04/23/17 14:40 DC 04/23/17 14:59 Procedures/MDM [place] [id number] Radiology Main Line: [phone] DIAGNOSTIC IMAGING REPORT Patient: DIPTI POWERS : 1990 Age: 27 Sex: F MR #: [id number] DOS: 04/23/17 1508 Ordering MD: RHONA KEMP NP Location: [facility] Room/Bed: PROCEDURE: US OB. CLINICAL INDICATION: 27-year-old female with vaginal bleeding. TECHNIQUE: Transabdominal and transvaginal views of the pelvis are available for review. COMPARISON: No. FINDINGS: The uterus is anteflexed and measures 9 cm sagittal by 4.5 cm AP by 5.3 cm transverse on endovaginal imaging. The endometrial thickness is 1.3 cm. There are tiny endometrial cyst. The right ovary measures 4.1 x 3.2 by 3.1 cm. A contains a simple cyst measuring 2.4 x 2.8 by 2.3 cm. The left ovary measured 3.7 x 1.2 by 2 cm on endovaginal imaging. No intrauterine gestation is identified. No ovarian or adnexal mass lesion is seen. There is no free fluid. IMPRESSION: 1. No intrauterine gestation is identified. Findings could be the result of an normal early IUP, a completed or ectopic . 2. When no IUP is demonstrated, correlation with serial beta HCG is recommended. With a quantitative beta HCG >2000, the differential diagnosis includes spontaneous or ectopic . Therefore, clinical follow-up is recommended including correlation with serial quantitative beta HCG levels and repeat sonogram with rising levels and/or/or localized or persistent pain. With quantitative beta HCG < 2000, the differential diagnosis includes early normal IVP or spontaneous or ectopic . Therefore, clinical follow-up is recommended including correlation with serial quantitative beta HCG levels and arising levels and / or persistent pain. 3. 2.8 x 2.4 x 2.3 cm right ovarian cyst. 4. No abnormal adnexal mass or free fluid is noted in the pelvis. There are 5 findings were phoned to Dr. Kemp at 04:01 p.m. the same day. MDM: This is a 27-year-old female presenting to the emergency department for lower abdominal pain with nausea, vomiting and diarrhea over the past 3 days. No fever upon arrival to ED. Vital signs are stable. No active vomiting or diarrhea. Labs and urine dip ordered. IV access obtained per bar staff. Patient given 1 L IV fluid bolus. Patient given Toradol and Zofran. Urinalysis is negative for infection. Urine is positive. CBC shows no significant anemia or infection. BMP shows no electrolyte imbalance. Lipase is normal. Beta-hCG is 167.8. Patient was unaware of status and therefore patient was informed of her test results. Patient's type and Rh factor is a be positive and therefore RhoGam is not indicated. OB ultrasound reviewed by radiologist as no intrauterine gestation identified. 2.8 x 2.4 x 2.3 cm right ovarian cyst. No abnormal adnexal mass or free fluid is noted in the pelvis. Discussed these findings with patient. Upon reassessment, patient states she is feeling better. Abdominal pain is diminished. No active vomiting or diarrhea in the ER. No vaginal bleeding. Differential diagnosis includes but not limited to ectopic , threatened , missed , normal , subchorionic hemorrhage , ruptured ovarian cyst, UTI or pyelonephritis. Instructed patient to return in 2 days for repeat lab work and ultrasound. Patient is appropriate for outpatient management and will be given prescription for Zofran and Tylenol. Instructed patient to follow-up here in the ED in 2 days. Return to ED sooner for any high fever, chest pain, difficulty breathing , shortness breath, wheezing, vomiting, diarrhea, abdominal pain or any new or worsening symptoms. Patient verbalizes understanding. All questions answered at discharge. Departure Diagnosis: Primary Impression: Vaginal bleeding before 22 weeks gestation Condition: Stable RHONA KEMP NP Apr 23, 2017 14:43
[2017-04-23 15:07] LABS: ADD SCAN DIFF NO
[2017-04-23 15:30] LABS: ALBUMIN 4.4 g/dl (3.3-4.9); ALBUMIN/GLOBULIN RATIO 1.18; BILIRUBIN,INDIRECT 0.4 mg/dl (0-1.1); BILIRUBIN,TOTAL 0.4 mg/dl (0.2-1.3); CALCIUM 9.4 mg/dl (8.4-10.2); CREATININE 0.81 mg/dl (0.44-1.00); POTASSIUM 4.2 mmol/L (3.5-5.1); TOTAL PROTEIN 8.1 g/dl (6.1-8.1)
[2017-04-23 15:38] LABS: BASOPHIL # 0.1 10^3/ul (0.0-0.1); BASOPHILS % 0.5 % (0.0-2.0); EOSINOPHILS # 0.1 10^3/ul (0.0-0.5); EOSINOPHILS % 0.9 % (0.0-7.0); HEMATOCRIT 44.5 % (37.0-47.0); HEMOGLOBIN 15.1 g/dl (12.0-16.0); LYMPHOCYTES # 3.3 10^3/ul (0.8-2.9); LYMPHOCYTES % 27.9 % (15.0-51.0); MEAN CORPUSCULAR HEMOGLOBIN 30.6 pg (29.0-33.0); MEAN CORPUSCULAR HGB CONC 33.9 g/dl (32.0-37.0); MEAN CORPUSCULAR VOLUME 90.3 fl (82.0-101.0); MEAN PLATELET VOLUME 10.6 fl (7.4-10.4); MONOCYTE # 0.6 10^3/ul (0.3-0.9); MONOCYTES % 4.8 % (0.0-11.0); NEUTROPHIL # 7.7 10^3/ul (1.6-7.5); NEUTROPHILS % 65.6 % (39.0-77.0); PLATELET COUNT 282 10^3/UL (140-415); RED BLOOD COUNT 4.93 10^6/ul (4.20-5.40); RED CELL DISTRIBUTION WIDTH 12.3 % (11.5-14.5); WHITE BLOOD COUNT 11.7 10^3/ul (4.8-10.8)
[2017-04-23 15:51] LABS: ADD UMIC NO; UR ASCORBIC ACID NEGATIVE (NEGATIVE); UR BILIRUBIN (Dip) NEGATIVE (NEGATIVE); UR BLOOD (Dip) NEGATIVE (NEGATIVE); UR CLARITY SLIGHTLY CLOUDY (CLEAR); UR COLOR YELLOW (YELLOW); UR GLUCOSE (Dip) NEGATIVE (NEGATIVE); UR KETONES (Dip) NEGATIVE (NEGATIVE); UR LEUKOCYTE ESTERASE (Dip) NEGATIVE Leu/ul (NEGATIVE); UR MUCUS FEW /HPF (NONE SEEN); UR NITRITE (Dip) NEGATIVE (NEGATIVE); UR RBC 1 /HPF (0-5); UR SPECIFIC GRAVITY (Dip) 1.024 (1.003-1.030); UR SQUAMOUS EPITHELIAL CELL FEW /HPF (FEW); UR TOTAL PROTEIN (Dip) NEGATIVE (NEGATIVE); UR UROBILINOGEN (Dip) NEGATIVE (NEGATIVE)
--- NOTE | 2017-04-23 16:05 | RADRPT ---
PROCEDURE: US OB. CLINICAL INDICATION: 27-year-old female with vaginal bleeding. TECHNIQUE: Transabdominal and transvaginal views of the pelvis are available for review. COMPARISON: No. FINDINGS: The uterus is anteflexed and measures 9 cm sagittal by 4.5 cm AP by 5.3 cm transverse on endovaginal imaging. The endometrial thickness is 1.3 cm. There are tiny endometrial cyst. The right ovary measures 4.1 x 3.2 by 3.1 cm. A contains a simple cyst measuring 2.4 x 2.8 by 2.3 c m. The left ovary measured 3.7 x 1.2 by 2 cm on endovaginal imaging. No intrauterine gestation is identified. No ovarian or adnexal mass lesion is seen. There is no free fluid. IMPRESSION: 1. No intrauterine gestation is identified. Findings could be the result of an normal early IUP, a completed or ectopic . 2. When no IUP is demonstrated, correlation with serial beta HCG is recommended. With a quantitative beta HCG >2000, the differential diagnosis includes spontaneous or ecto pic . Therefore, clinical follow-up is recommended including correlation with serial quant itative beta HCG levels and repeat sonogram with rising levels and/or/or localized or persistent kodi n. With quantitative beta HCG < 2000, the differential diagnosis includes early normal IVP or spontaneo us or ectopic . Therefore, clinical follow-up is recommended including correlatio n with serial quantitative beta HCG levels and arising levels and / or persistent pain. 3. 2.8 x 2.4 x 2.3 cm right ovarian cyst. 4. No abnormal adnexal mass or free fluid is noted in the pelvis. There are 5 findings were phoned to Dr. Kemp at 04:01 p.m. the same day. RPTAT:AAJJ Physician Tammie Date Time Electronically viewed and signed by Physician Tammie on 04/23/2017 16:05 MARCO ANTONIO/
[2017-04-23] MEDS ORDERED: ONDA4TAB8 PO (16:22)
[2017-04-23] MEDS ORDERED: ACET325T33 PO (16:22)
== END 2017-04-23 16:28 | disposition home or self-care (01) ==
LOC: EDUNIT# 14:04 → E/R 14:04 → FTE 16:28
DX: N93.9 Abnormal uterine and vaginal bleeding, unspecified (principal); R11.2 Nausea with vomiting, unspecified; Z33.1 Pregnant state, incidental
CPT/HCPCS: 36415; 76801; 76817; 80053; 81001; 83690; 84702; 85025; 86900; 86901; 96374; 96375; J1885; J2405; J7030; Z7502; 81003

== ENCOUNTER 2017-04-25 06:31 | Emergency (ER) | payer BC ==
[~2017-04-25] VITALS: Ht 162.6 cm; Wt 65.5 kg
[~2017-04-25 06:31] MED LIST changes: +ACET325T33 PO; +ONDA4TAB8 PO
[2017-04-25 06:35] VITALS: Ht 162.6 cm; Wt 65.5 kg
[2017-04-25] MEDS ORDERED: DICYCLOMINE 10 MG CAP PO ONE (07:00)
[2017-04-25 07:18] LABS: ADD UMIC YES; UR ASCORBIC ACID NEGATIVE (NEGATIVE); UR BILIRUBIN (Dip) NEGATIVE (NEGATIVE); UR BLOOD (Dip) NEGATIVE (NEGATIVE); UR CLARITY CLEAR (CLEAR); UR COLOR YELLOW (YELLOW); UR GLUCOSE (Dip) NEGATIVE (NEGATIVE); UR KETONES (Dip) NEGATIVE (NEGATIVE); UR LEUKOCYTE ESTERASE (Dip) TRACE Leu/ul (NEGATIVE); UR MUCUS FEW /HPF (NONE SEEN); UR NITRITE (Dip) NEGATIVE (NEGATIVE); UR RBC 1 /HPF (0-5); UR SPECIFIC GRAVITY (Dip) 1.021 (1.003-1.030); UR SQUAMOUS EPITHELIAL CELL FEW /HPF (FEW); UR TOTAL PROTEIN (Dip) NEGATIVE (NEGATIVE); UR UROBILINOGEN (Dip) NEGATIVE (NEGATIVE)
--- NOTE | 2017-04-25 07:26 | ERD ---
ER Documentation Chief Complaint Date/Time DATE: 04/25/17 TIME: 07:21 Chief Complaint for recheck on labs , was seen here for vag bleed x 2 days ago HPI This is a 27-year-old female who presents to the emergency department today for recheck of her laboratory work. Patient indicated she was here 2 days ago for lower abdominal pain with nausea vomiting and diarrhea. Patient states that this is somewhat persisted. She has been taking the Zofran and Tylenol. Denies any fevers or chills. States she has an appointment with her primary care doctor, Dr. Arrington next week ROS All systems reviewed and are negative except as per history of present illness. Medications Home Meds Active Scripts Dicyclomine Hcl* (Bentyl*) 10 Mg Capsule, 10 MG PO QID, #30 CAP Prov:LAURA CARROLL PA-C 04/25/17 Acetaminophen* (Tylenol*) 325 Mg Tablet, 1 TAB PO Q6 Y for PAIN AND OR ELEVATED TEMP, #20 TAB Prov:RHONA CHIU NP 04/23/17 Ondansetron Hcl* (Zofran*) 4 Mg Tablet, 4 MG PO Q6H for NAUSEA AND/OR VOMITING, #10 TAB Prov:RHONA CHIU NP 04/23/17 Diphenhydramine Hcl* (Benadryl*) 25 Mg Cap, 25 MG PO Q6, #30 CAP Prov:MELANIE MORALES 02/10/17 Prednisone* (Prednisone*) 20 Mg Tab, 60 MG PO DAILY for 4 Days, TAB Prov:MELANIE MORALES 02/10/17 Cyclobenzaprine Hcl* (Cyclobenzaprine Hcl*) 10 Mg Tablet, 10 MG PO QHS, #7 TAB Prov:LAURA CARROLL PA-C 01/12/17 Naproxen* (Naprosyn*) 500 Mg Tablet, 500 MG PO BID Y for PAIN AND/OR INFLAMMATION, #30 TAB Prov:LAURA CARROLL PA-C 01/12/17 Hydrocodone/Acetaminophen ([place] 5-325 Tablet) 1 Each Tablet, 1 TAB PO Q6H Y for PAIN, #10 TAB Prov:LAURA CARROLL PA-C 01/12/17 Reported Medications Folic Acid* (Folic Acid*) 1 Mg Tablet, 1 MG PO DAILY, TAB 11/13/16 Levothyroxine Sodium* (Levothyroxine Sodium*) 25 Mcg Tablet, 1 TAB PO DAILY, #30 11/10/16 Allergies Allergies: Coded Allergies: No Known Drug Allergies (Verified Allergy, Unknown, 04/25/17) PMhx/Soc History of Surgery: Yes (r. ankle) Anesthesia Reaction: No Hx Neurological Disorder: No Hx Respiratory Disorders: No Hx Cardiac Disorders: No Hx Psychiatric Problems: No Hx Miscellaneous Medical Probl: Yes (Thyroid) Hx Alcohol Use: No Hx Substance Use: No Hx Tobacco Use: No Smoking Status: Never smoker Physical Exam Vitals Vital Signs Date Time Temp Pulse Resp B/P Pulse Ox O2 Delivery O2 Flow Rate FiO2 04/25/17 06:35 98.1 89 18 109/73 98 Physical Exam Const: No acute distress Head: Atraumatic Eyes: Normal Conjunctiva ENT: Normal External Ears, Nose and Mouth. Neck: Full range of motion..~ No meningismus. Resp: Clear to auscultation bilaterally Cardio: Regular rate and rhythm, no murmurs Abd: Soft, suprapubic tenderness non distended. Normal bowel sounds. No right upper quadrant tenderness. No tenderness at McBurney Skin: No petechiae or rashes Back: No midline or flank tenderness Ext: No cyanosis, or edema Neur: Awake and alert Psych: Normal Mood and Affect Results 24 hrs Laboratory Tests Test 04/25/17 07:00 04/25/17 07:03 Urine Color YELLOW Urine Clarity CLEAR Urine pH 5.0 Urine Specific [place] 1.021 Urine Ketones NEGATIVEmg/dL Urine Nitrite NEGATIVEmg/dL Urine Bilirubin NEGATIVEmg/dL Urine Urobilinogen NEGATIVEmg/dL Urine Leukocyte Esterase TRACELeu/ul Urine Microscopic RBC 1/HPF Urine Microscopic WBC 1/HPF Urine Squamous Epithelial Cells FEW/HPF Urine Mucus FEW/HPF Urine Hemoglobin NEGATIVEmg/dL Urine Glucose NEGATIVEmg/dL Urine Total Protein NEGATIVEmg/dl Beta HCG, Quantitative 353.2mIU/ml Current Medications Medications (Trade) Dose Ordered Sig/Manju Route PRN Reason Start Time Stop Time Status Last Admin Dose Admin Dicyclomine HCl (Bentyl) 10 mg ONCE ONCE PO 04/25/17 07:00 04/25/17 07:01 DC 04/25/17 07:06 DIAGNOSTIC IMAGING REPORT Patient: DIPTI POWERS: 1990 Age: 27 Sex: F MR #: [id number] DOS: 04/25/17 0650 Ordering MD: LAURA CARROLL PA-C Location: [facility] Room/Bed: PROCEDURE: US OB. CLINICAL INDICATION: Vaginal bleeding in . TECHNIQUE: Transabdominal and endovaginal imaging of the uterus is available for review COMPARISON: None available FINDINGS: No intrauterine is identified. The endometrial stripe measures 12 mm in thickness. Again noted are small cystic structures within the endometrium. The uterus is otherwise unremarkable. The right ovary measures 4.5 x 3.9 x 3.6 cm and the left ovary measures 3.1 x 1.4 x 2.1 cm. No adnexal mass is identified. Small free fluid is noted within the pelvis. IMPRESSION: No intrauterine identified. There are no adnexal masses. Small cystic structures are seen within the endometrium, findings are nonspecific but can be seen with trophoblastic disease. Correlation with serial beta HCGs and repeat pelvic ultrasound as clinically indicated, is recommended. Ectopic is not excluded on this examination. RPTAT: HH .Aracelis Reyna MD, MD Date Time Electronically viewed and signed by .Aracelis Reyna MD, on 04/25/2017 08 :43 .G/ CC: LAURA CARROLL PA-C Procedures/MDM This is a 27-year-old female who presents the emergency department today for lower abdominal pain, nausea vomiting and diarrhea. Upon review of patient's medical records patient was seen here on April 23, 2017, 2 days ago and patient was noted to have a positive test at that time and had a full OB workup done. Patient has had no vaginal bleeding. I did repeat patient's beta quant and ultrasound. On previous records there was no indication for an IUP however patient's beta quant at that time was 167.8 and very low and most likely consistent with early . Beta quant hCG 353.2 UA shows trace leukocyte esterase with negative nitrites and no white blood cells Ultrasound shows no intrauterine identified. There are no adnexal masses. There is small cystic structure seen within the endometrium, findings are nonspecific but can be seen with trophoblastic disease. Ectopic is not excluded on this exam. There is no adnexal mass identified there is small free fluid noted within the pelvis. Endometrial stripe measures 12 mm in thickness. Patient was given Bentyl here in the emergency department and she reported not having to go to the bathroom while she was here in the emergency department. She is not actively vomiting. Patient describes mostly pelvic pain. She has no tenderness at McBurney's and have low suspicion for acute surgical abdomen upon review of her last medical records patient had a mildly elevated white blood cell count. Her labs are otherwise within normal limits her UA was negative I did place a call to Dr. Pan, the latest completion manager and she does not feel that the patient needs further workup at this time. She has recommended the patient get a repeat ultrasound in 1 week. I have explained this to the patient. All questions were answered. Patient was instructed to keep her appointment with Dr. rArington next week. I have also given her a list of [facility] [employer] referral At this time the patient is stable for discharge and outpatient management. Patient should follow up with their PCP in the next 1-2 days. They may return to the emergency department sooner for any persistent or worsening of symptoms. Patient understood and agreed with the plan. Departure Diagnosis: Primary Impression: Follow-up exam Additional Impression: Abdominal pain Abdominal location: lower abdomen, unspecified Qualified Code: R10.30 - Lower abdominal pain Condition: LAURA Roa PA-C Apr 25, 2017 07:25
--- NOTE | 2017-04-25 08:43 | RADRPT ---
PROCEDURE: US OB. CLINICAL INDICATION: Vaginal bleeding in . TECHNIQUE: Transabdominal and endovaginal imaging of the uterus is available for review COMPARISON: None available FINDINGS: No intrauterine is identified. The endometrial stripe measures 12 mm in thickness. Agai n noted are small cystic structures within the endometrium. The uterus is otherwise unremarkable. The right ovary measures 4.5 x 3.9 x 3.6 cm and the left ovary measures 3.1 x 1.4 x 2.1 cm. No adne xal mass is identified. Small free fluid is noted within the pelvis. IMPRESSION: No intrauterine identified. There are no adnexal masses. Small cystic structures are see n within the endometrium, findings are nonspecific but can be seen with trophoblastic disease. Corre lation with serial beta HCGs and repeat pelvic ultrasound as clinically indicated, is recommended. Ectopic is not excluded on this examination. RPTAT: HH .Aracelis Reyna MD, MD Date Time Electronically viewed and signed by .Aracelis Reyna MD, on 04/25/2017 08:43 .G/
[2017-04-25] MEDS ORDERED: DICY10CA60 PO (09:47)
[2017-04-25 09:57] VITALS: BP 112/62; PULSE 87; RESP 18; TEMP 97.9
== END 2017-04-25 09:57 | disposition home or self-care (01) ==
LOC: FTE 06:31
DX: O26.891 Other specified pregnancy related conditions, first trimester (principal); R10.30 Lower abdominal pain, unspecified; R10.2 Pelvic and perineal pain; Z3A.00 Weeks of gestation of pregnancy not specified
CPT/HCPCS: 76801; 76817; 81001; 84702; Z7610; 36415

== ENCOUNTER 2017-05-05 10:19 | Emergency (ER) | payer BC ==
[~2017-05-05] VITALS: Ht 157.5 cm; Wt 63.6 kg
[~2017-05-05 10:19] MED LIST changes: +DICY10CA60 PO
[2017-05-05 10:20] VITALS: Ht 157.5 cm; Wt 63.6 kg
[2017-05-05] MEDS ORDERED: ACETAMINOPHEN 325 MG TAB PO STA (10:46)
--- NOTE | 2017-05-05 10:58 | ERD ---
ER Documentation Chief Complaint Date/Time DATE: 05/05/17 TIME: 10:56 Chief Complaint PELVIC PAIN 8 HOURS AGO, NO VAGINAL BLEEING LMP 03/05/17 HPI Patient is a 27-year-old female who is with a last normal menstrual period of 03/05/17 who presents to the ED with right-sided pelvic pain 2 hours. Patient states that she has been here twice this month for pelvic pain. She states that her last visit on 04/25/17 showed elevated beta hCG with no intrauterine . She states that she followed up with her OB doctor, and states that she had blood work and urine done this week however she does not have the results. 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 Patient states that the pain feels like a stabbing contraction pain that occurs every 30 minutes and is now happening every 2 minutes. She denies abdominal pain, nausea, vomiting or diarrhea. She denies headache or dizziness. She denies chest pain or cough or shortness of breath. She denies leg pain or leg swelling. She denies vaginal bleeding. No other complaints. ROS All systems reviewed and are negative except as per history of present illness. Medications Home Meds Active Scripts Acetaminophen* (Tylophen*) 500 Mg Capsule, 1 CAP PO Q6H Y for PAIN AND OR ELEVATED TEMP, #20 CAP Prov:JAM GODINEZ PA-C 05/05/17 Dicyclomine Hcl* (Bentyl*) 10 Mg Capsule, 10 MG PO QID, #30 CAP Prov:LAURA CARROLL PA-C 04/25/17 Acetaminophen* (Tylenol*) 325 Mg Tablet, 1 TAB PO Q6 Y for PAIN AND OR ELEVATED TEMP, #20 TAB Prov:RHONA CHIU NP 04/23/17 Ondansetron Hcl* (Zofran*) 4 Mg Tablet, 4 MG PO Q6H for NAUSEA AND/OR VOMITING, #10 TAB Prov:RHONA CHIU NP 04/23/17 Diphenhydramine Hcl* (Benadryl*) 25 Mg Cap, 25 MG PO Q6, #30 CAP Prov:MELANIE MORALES 02/10/17 Prednisone* (Prednisone*) 20 Mg Tab, 60 MG PO DAILY for 4 Days, TAB Prov:MELANIE MORALES 02/10/17 Cyclobenzaprine Hcl* (Cyclobenzaprine Hcl*) 10 Mg Tablet, 10 MG PO QHS, #7 TAB Prov:LAURA CARROLL PA-C 01/12/17 Naproxen* (Naprosyn*) 500 Mg Tablet, 500 MG PO BID Y for PAIN AND/OR INFLAMMATION, #30 TAB Prov:LAURA CARROLL PA-C 01/12/17 Hydrocodone/Acetaminophen ([place] 5-325 Tablet) 1 Each Tablet, 1 TAB PO Q6H Y for PAIN, #10 TAB Prov:LAURA CARROLL PA-C 01/12/17 Reported Medications Folic Acid* (Folic Acid*) 1 Mg Tablet, 1 MG PO DAILY, TAB 11/13/16 Levothyroxine Sodium* (Levothyroxine Sodium*) 25 Mcg Tablet, 1 TAB PO DAILY, #30 11/10/16 Allergies Allergies: Coded Allergies: No Known Drug Allergies (Verified Allergy, Unknown, 04/25/17) PMhx/Soc History of Surgery: Yes (r. ankle) Anesthesia Reaction: No Hx Neurological Disorder: Yes Hx Respiratory Disorders: No Hx Cardiac Disorders: No Hx Psychiatric Problems: No Hx Miscellaneous Medical Probl: Yes (Thyroid) Hx Alcohol Use: No Hx Substance Use: No Hx Tobacco Use: No Smoking Status: Never smoker FmHx Family History: No coronary disease, No diabetes, No other Physical Exam Vitals Vital Signs Date Time Temp Pulse Resp B/P Pulse Ox O2 Delivery O2 Flow Rate FiO2 05/05/17 10:20 98.2 115 19 128/73 100 Physical Exam GENERAL: Well-developed, well-nourished female. Appears in no acute distress. HEAD: Normocephalic, atraumatic. EYES: Pupils are equally reactive bilaterally. EOMs grossly intact. No conjunctival erythema. ENT: Moist mucous membranes. No uvula deviation. No kissing tonsils. No exudates. NECK: Supple. No lymphadenopathy or thyromegaly. No meningismus. negative kernig. negative brudinski. LUNG: Clear to auscultation bilaterally. No rhonchi, wheezing, rales or coarse breath sounds. HEART: Regular rate and rhythm. No murmurs, rubs or gallops. ABDOMEN: No scars, ecchymosis or rashes noted. Soft, nontender, and nondistended. Positive bowel sounds in all four quadrants. No rebound tenderness , no guarding. (-) McBurneys point tenderness. No CVA tenderness. Tenderness in the upper and right pelvic. BACK: No midline tenderness. Extremities: Equal pulses bilaterally. No peripheral clubbing, cyanosis or edema. No unilateral leg swelling. NEUROLOGIC: Alert and oriented. Moving all four extremities. 5/5 strength in all extremities. Normal speech. Steady gait. SKIN: Normal color. Warm and dry. No rashes or lesions. Capillary refill < 2 seconds Result Diagram: 05/05/17 1051 05/05/17 1051 Results 24 hrs Laboratory Tests Test 05/05/17 10:51 White Blood Count 10.010^3/ul Red Blood Count 4.5110^6/ul Hemoglobin 14.3g/dl Hematocrit 39.9% Mean Corpuscular Volume 88.5fl Mean Corpuscular Hemoglobin 31.7pg Mean Corpuscular Hemoglobin Concent 35.8g/dl Red Cell Distribution Width 12.0% Platelet Count 54082^3/UL Mean Platelet Volume 10.0fl Neutrophils % 67.3% Lymphocytes % 26.6% Monocytes % 4.7% Eosinophils % 0.8% Basophils % 0.4% Nucleated Red Blood Cells % 0.0/100WBC Neutrophils # 6.710^3/ul Lymphocytes # 2.710^3/ul Monocytes # 0.510^3/ul Eosinophils # 0.110^3/ul Basophils # 0.010^3/ul Nucleated Red Blood Cells # 0.010^3/ul Urine Color YELLOW Urine Clarity CLEAR Urine pH 5.0 Urine Specific [place] 1.028 Urine Ketones NEGATIVEmg/dL Urine Nitrite NEGATIVEmg/dL Urine Bilirubin NEGATIVEmg/dL Urine Urobilinogen NEGATIVEmg/dL Urine Leukocyte Esterase NEGATIVELeu/ul Urine Hemoglobin NEGATIVEmg/dL Urine Glucose NEGATIVEmg/dL Urine Total Protein NEGATIVEmg/dl Sodium Level 143mmol/L Potassium Level 3.9mmol/L Chloride Level 105mmol/L Carbon Dioxide Level 23mmol/L Anion Gap 19 Blood Urea Nitrogen 11mg/dl Creatinine 0.80mg/dl Glucose Level 121mg/dl Calcium Level 9.3mg/dl Beta HCG, Quantitative 33069.0mIU/ml Current Medications Medications (Trade) Dose Ordered Sig/Manju Route PRN Reason Start Time Stop Time Status Last Admin Dose Admin Acetaminophen (Tylenol Tab) 650 mg ONCE STAT PO 05/05/17 10:46 05/05/17 10:48 DC 05/05/17 10:58 Procedures/MDM ER COURSE: I kept the patient and/or family informed of laboratory and diagnostic imaging results throughout the emergency room course. IMAGING STUDIES [place] [id number] Radiology Main Line: [phone] DIAGNOSTIC IMAGING REPORT Patient: DIPTI POWERS : 1990 Age: 27 Sex: F MR #: [id number] DOS: 05/05/17 1046 Ordering MD: JAM GODINEZ PA-C Location: [facility] Room/Bed: PROCEDURE: US OB. CLINICAL INDICATION: Pelvic pain TECHNIQUE: Transabdominal and transvaginal views of the pelvis are available for review. COMPARISON: 04/25/2017 FINDINGS: There is a single intrauterine gestation with the crown-rump length measuring 0.2 cm, corresponding to a gestational age of 5 weeks and 5 days. The heart tones are not detected. Normal Doppler flow is identified in both ovaries. The right ovary measures 4.2 x 2.4 cm. There is a 2 cm corpus luteum cyst in the right ovary. The left ovary measures 3.0 x 1.4 cm. There is no free fluid. RPTAT: AA IMPRESSION: Single intrauterine with an estimated gestational age of 5 weeks and 5 days, based on ultrasound measurements. [place] based on ultrasound measurements is 12/31/17. heart tones are not yet identified. Follow-up is recommended. .Helder Anderson MD, MD Date Time Electronically viewed and signed by .Helder Anderson MD, MD on 05/05/2017 12: 08 .S/ CC: JAM GODINEZ PA-C LABORATORY STUDIES [facility] MEDICATIONS Tylenol. Tolerated well with no adverse reaction. MEDICAL DECISION MAKING: This is a 27-year-old female who is who presents with pelvic pain 2 hours. Vital signs were reviewed. Patient is afebrile. Patient is not hypoxic. Patient's ultrasound is read by radiologist shows a single intrauterine with an age of 5 weeks and 5 days. heart tones are not yet identified. I consulted with the labor is retail operations manager, Dr Kaiser. Patient can be treated outpatient only with Tylenol. Patient to follow-up with in 2 days. Low suspicion for ovarian torsion, PID, tuboovarian abscess, ectopic , bowel obstruction, pyelonephritis, UTI, appendicitis, cervicitis, septic , molar , HELLP syndrome, preeclampsia, eclampsia, placenta previa, placenta abruptia. DISCHARGE: At this time, patient is stable for discharge and outpatient management with no new complaints during the ER course. Patient was sent home with copy of all imaging and laboratory studies and to follow-up with in 2 days. Patient to continue taking Tylenol as needed for pain. Patient will be discharged home with instructions to recheck for new or worsening symptoms such as fever, nausea, weakness, LOC and to follow up with primary care in the next 1 -2 days. Patient was advised to return to the ER for any new or worsening symptoms. Plan was discussed and patient and/or family understands and agrees. Home instructions were given. Departure Diagnosis: Primary Impression: Pelvic pain complicating Condition: Stable JAM GODINEZ PA-C May 05, 2017 10:58
[2017-05-05 11:05] LABS: BASOPHILS % 0.4 % (0.0-2.0); EOSINOPHILS # 0.1 10^3/ul (0.0-0.5); EOSINOPHILS % 0.8 % (0.0-7.0); HEMATOCRIT 39.9 % (37.0-47.0); HEMOGLOBIN 14.3 g/dl (12.0-16.0); LYMPHOCYTES # 2.7 10^3/ul (0.8-2.9); LYMPHOCYTES % 26.6 % (15.0-51.0); MEAN CORPUSCULAR HEMOGLOBIN 31.7 pg (29.0-33.0); MEAN CORPUSCULAR HGB CONC 35.8 g/dl (32.0-37.0); MEAN CORPUSCULAR VOLUME 88.5 fl (82.0-101.0); MONOCYTE # 0.5 10^3/ul (0.3-0.9); MONOCYTES % 4.7 % (0.0-11.0); NEUTROPHIL # 6.7 10^3/ul (1.6-7.5); NEUTROPHILS % 67.3 % (39.0-77.0); PLATELET COUNT 267 10^3/UL (140-415); RED BLOOD COUNT 4.51 10^6/ul (4.20-5.40)
[2017-05-05 11:25] LABS: ADD UMIC NO; UR ASCORBIC ACID 40 mg/dL (NEGATIVE); UR BILIRUBIN (Dip) NEGATIVE (NEGATIVE); UR BLOOD (Dip) NEGATIVE (NEGATIVE); UR CLARITY CLEAR (CLEAR); UR COLOR YELLOW (YELLOW); UR GLUCOSE (Dip) NEGATIVE (NEGATIVE); UR KETONES (Dip) NEGATIVE (NEGATIVE); UR LEUKOCYTE ESTERASE (Dip) NEGATIVE Leu/ul (NEGATIVE); UR NITRITE (Dip) NEGATIVE (NEGATIVE); UR SPECIFIC GRAVITY (Dip) 1.028 (1.003-1.030); UR TOTAL PROTEIN (Dip) NEGATIVE (NEGATIVE); UR UROBILINOGEN (Dip) NEGATIVE (NEGATIVE)
[2017-05-05 11:29] LABS: CALCIUM 9.3 mg/dl (8.4-10.2); CREATININE 0.8 mg/dl (0.44-1.00); POTASSIUM 3.9 mmol/L (3.5-5.1)
--- NOTE | 2017-05-05 12:08 | RADRPT ---
PROCEDURE: US OB. CLINICAL INDICATION: Pelvic pain TECHNIQUE: Transabdominal and transvaginal views of the pelvis are available for review. COMPARISON: 04/25/2017 FINDINGS: There is a single intrauterine gestation with the crown-rump length measuring 0.2 cm, corresponding to a gestational age of 5 weeks and 5 days. The heart tones are not detected. Normal Doppler flow is identified in both ovaries. The right ovary measures 4.2 x 2.4 cm. There is a 2 cm corpus luteum cyst in the right ovary. The left ovary measures 3.0 x 1.4 cm. There is no free fluid. RPTAT: AA IMPRESSION: Single intrauterine with an estimated gestational age of 5 weeks and 5 days, based on ultr asound measurements. [place] based on ultrasound measurements is 12/31/17. heart tones are not yet identified. Follow-up is recommended. .Helder Anderson MD, MD Date Time Electronically viewed and signed by .Helder Anderson MD, on 05/05/2017 12:08 .S/
[2017-05-05] MEDS ORDERED: ACET500C5 PO (13:06)
== END 2017-05-05 13:29 | disposition home or self-care (01) ==
LOC: FTE 10:19
DX: O26.891 Other specified pregnancy related conditions, first trimester (principal); R10.2 Pelvic and perineal pain; Z3A.01 Less than 8 weeks gestation of pregnancy
CPT/HCPCS: 76801; 76817; 80048; 81003; 84702; 85025; Z7610; 36415

== ENCOUNTER 2017-05-23 07:58 | Emergency (ER) | END 2017-05-23 09:55 | disposition short-term general hospital (02) | DX: O99.89 Other specified diseases and conditions complicating pregnancy, childbirth and the puerperium (principal); H53.8 Other visual disturbances; O99.281 Endocrine, nutritional and metabolic diseases complicating pregnancy, first trimester; E03.9 Hypothyroidism, unspecified; R40.2142 Coma scale, eyes open, spontaneous, at arrival to emergency department; R40.2252 Coma scale, best verbal response, oriented, at arrival to emergency department; R40.2362 Coma scale, best motor response, obeys commands, at arrival to emergency department; R10.2 Pelvic and perineal pain; R51 Headache; Z87.891 Personal history of nicotine dependence; Z79.82 Long term (current) use of aspirin; Z3A.08 8 weeks gestation of pregnancy | CPT/HCPCS: 36415; 70450; 76801; 80053; 82550; 82553; 82962; 83036; 84484; 84702; 85025; 85610; 85730; 93005; 96374; 96375; J1200; J2765; J7030; Z7502; Z7610 ==

== ENCOUNTER 2017-07-03 16:44 | Emergency (ER) | payer BC ==
[~2017-07-03] VITALS: Ht 152.4 cm; Wt 78.0 kg
[~2017-07-03 16:44] MED LIST changes: -ACET325T33 PO; +ASPI-664 PO; -BEN25 PO; -CYCL-319 PO; -DICY10CA60 PO; +FER325 PO; -HYDR-906 PO; -LEVO25TA53 PO; -NAPR-260 PO; -PRED20TA PO; +PRENAT PO; +PYRI50TA80 PO
[2017-07-03 16:48] VITALS: Ht 152.4 cm; Wt 78.0 kg
[2017-07-03] MEDS ORDERED: ACETAMINOPHEN 325 MG TAB PO STA (17:17)
--- NOTE | 2017-07-03 17:22 | ERD ---
ER Documentation Chief Complaint Date/Time DATE: 07/03/17 TIME: 17:19 Chief Complaint 15 WEEKS WITH AP HPI A 27-year-old female who presents with sudden onset, constant, moderate to severe, cramping suprapubic and bilateral lower abdominal pain for 1 hour. She reports that she has had brown vaginal discharge since last night. She also had mild suprapubic pain last night. She denies dysuria. She denies back pain. She reports having a fever of 90 temperature of 99.7 measured today. She vomited once in the setting of smelling a noxious odor. She denies gross vaginal bleeding. She denies diarrhea or constipation. She states that her daughter has had gastrointestinal symptoms recently. She is 15 weeks . She is with 3 spontaneous abortions. ROS All systems reviewed and are negative except as per history of present illness. Medications Home Meds Active Scripts Acetaminophen* (Tylophen*) 500 Mg Capsule, 2 CAP PO Q8H Y for PAIN AND OR ELEVATED TEMP, #20 CAP Prov:CHEPE LOVING MD 07/03/17 Metronidazole* (Flagyl*) 500 Mg Tablet, 500 MG PO TID for 7 Days, TAB Prov:CHEPE LOVING MD 07/03/17 Reported Medications Ferrous Sulfate* (Ferrous Sulfate*) 325 Mg Tabec, 325 MG PO DAILY, TAB 05/23/17 Folic Acid* (Folic Acid*) 1 Mg Tablet, 1 MG PO DAILY, TAB 05/23/17 Aspirin (Low Dose Aspirin) 81 Mg Tablet.dr, 81 MG PO DAILY, #30 TAB 05/23/17 Multivit/Min/Fol Ac/Iron/Pren* ( S*) 1 Tab Tab, 1 TAB PO DAILY, TAB 05/23/17 Ondansetron Hcl* (Zofran*) 4 Mg Tablet, 4 MG PO Q6H Y for NAUSEA AND OR VOMITING , TAB 05/23/17 Pyridoxine Hcl (Vitamin B6) 50 Mg Tab, 50 MG PO DAILY, TAB 05/23/17 Allergies Allergies: Coded Allergies: No Known Drug Allergies (Verified Allergy, Unknown, 05/23/17) PMhx/Soc Past medical history: Seizures, 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 ankle) Anesthesia Reaction: No Hx Neurological Disorder: Yes (Seizures, CVA X3, Hx of TPA) Hx Respiratory Disorders: No Hx Cardiac Disorders: No Hx Psychiatric Problems: No Hx Miscellaneous Medical Probl: Yes (Hypothyroidism) Hx Alcohol Use: No Hx Substance Use: No Hx Tobacco Use: No FmHx Family History: No coronary disease, No diabetes Physical Exam Vitals Vital Signs Date Time Temp Pulse Resp B/P Pulse Ox O2 Delivery O2 Flow Rate FiO2 07/03/17 23:51 98.1 86 20 115/68 97 Room Air 07/03/17 16:48 98.1 96 18 120/74 99 Physical Exam Const: Alert, mild distress Head: Atraumatic Eyes: Normal Conjunctiva, No pallor, no icterus ENT: Normal External Ears, Nose and Mouth.Mucous membranes moist Neck: Full range of motion. No meningismus. Resp: Clear to auscultation bilaterally, No wheezes, rales Cardio: Regular rate and rhythm, no murmurs Abd: Soft, Gravid uterus, moderate suprapubic tenderness, mild right lower and left lower quadrant tenderness, no rebound, no guarding. CREATIVE DESIGNER: Mild to moderate whitish secretions in the vaginal vault. Normal cervix with closed office, no lesions, erythema or significant tenderness. No blood in vault Skin: No petechiae or rashes Back: No midline or flank tenderness Ext: No cyanosis, or edema Neur: Awake and alert, Cranial nerves II through XII intact bilaterally, strength and sensation full in 4 extremities. Psych: Normal Mood and Affect Result Diagram: 07/03/17 1725 07/03/17 1725 Results 24 hrs Laboratory Tests Test 07/03/17 17:25 07/03/17 17:45 White Blood Count 9.910^3/ul Red Blood Count 4.3910^6/ul Hemoglobin 13.8g/dl Hematocrit 38.6% Mean Corpuscular Volume 87.9fl Mean Corpuscular Hemoglobin 31.4pg Mean Corpuscular Hemoglobin Concent 35.8g/dl Red Cell Distribution Width 11.9% Platelet Count 25933^3/UL Mean Platelet Volume 10.5fl Neutrophils % 66.4% Lymphocytes % 27.1% Monocytes % 5.0% Eosinophils % 0.9% Basophils % 0.3% Nucleated Red Blood Cells % 0.0/100WBC Neutrophils # 6.610^3/ul Lymphocytes # 2.710^3/ul Monocytes # 0.510^3/ul Eosinophils # 0.110^3/ul Basophils # 0.010^3/ul Nucleated Red Blood Cells # 0.010^3/ul Sodium Level 137mmol/L Potassium Level 3.9mmol/L Chloride Level 106mmol/L Carbon Dioxide Level 24mmol/L Anion Gap 11 Blood Urea Nitrogen 5mg/dl Creatinine 0.65mg/dl Glucose Level 80mg/dl Calcium Level 9.4mg/dl Total Bilirubin 0.5mg/dl Direct Bilirubin 0.00mg/dl Indirect Bilirubin 0.5mg/dl Aspartate Amino Transf (AST/SGOT) 21IU/L Alanine Aminotransferase (ALT/SGPT) 33IU/L Alkaline Phosphatase 54IU/L Total Protein 6.5g/dl Albumin 3.7g/dl Globulin 2.80g/dl Albumin/Globulin Ratio 1.32 Urine Color YELLOW Urine Clarity CLEAR Urine pH 7.0 Urine Specific [place] 1.011 Urine Ketones 1+mg/dL Urine Nitrite NEGATIVEmg/dL Urine Bilirubin NEGATIVEmg/dL Urine Urobilinogen NEGATIVEmg/dL Urine Leukocyte Esterase NEGATIVELeu/ul Urine Hemoglobin NEGATIVEmg/dL Urine Glucose NEGATIVEmg/dL Urine Total Protein NEGATIVEmg/dl Current Medications Medications (Trade) Dose Ordered Sig/Manju Route PRN Reason Start Time Stop Time Status Last Admin Dose Admin Acetaminophen (Tylenol Tab) 650 mg ONCE STAT PO 07/03/17 17:17 07/03/17 17:20 DC 07/03/17 17:53 Procedures/MDM MDM: Patient is a 27-year-old female in second trimester presents with acute bilateral lower quadrant abdominal pain and suprapubic pain. Ultrasound showed no abnormality. Pelvic exam was unremarkable except for moderate whitish discharge. Wet mount showed evidence of bacterial vaginosis. There is no CMT or evidence of cervicitis. The patient is afebrile and has a normal white blood cell count. Given some degree of right lower quadrant tenderness and patient describing severe pain, MRI was performed to exclude appendicitis and was unremarkable. The patient was counseled regarding risks and benefits of MRI and agreed to procedure. There is no evidence of urinary tract infection. Patient was discharged with a 7 day course of Flagyl. I advised Tylenol for pain. I advised her to follow-up with her GLAZIER SUPERVISOR in the next 1-2 days. On reassessment prior to discharge, the patient appeared significantly more comfortable and was able to ambulate without difficulty. Departure Diagnosis: Primary Impression: Abdominal pain Abdominal location: lower abdomen, unspecified Qualified Code: R10.30 - Lower abdominal pain Additional Impressions: Second trimester Bacterial vaginosis Condition: CHEPE Nettles MD Jul 03, 2017 17:22 CHEPE LOVING MD Jul 03, 2017 17:22
[2017-07-03 17:49] LABS: BASOPHILS % 0.3 % (0.0-2.0); EOSINOPHILS # 0.1 10^3/ul (0.0-0.5); EOSINOPHILS % 0.9 % (0.0-7.0); HEMATOCRIT 38.6 % (37.0-47.0); HEMOGLOBIN 13.8 g/dl (12.0-16.0); LYMPHOCYTES # 2.7 10^3/ul (0.8-2.9); LYMPHOCYTES % 27.1 % (15.0-51.0); MEAN CORPUSCULAR HEMOGLOBIN 31.4 pg (29.0-33.0); MEAN CORPUSCULAR HGB CONC 35.8 g/dl (32.0-37.0); MEAN CORPUSCULAR VOLUME 87.9 fl (82.0-101.0); MEAN PLATELET VOLUME 10.5 fl (7.4-10.4); MONOCYTE # 0.5 10^3/ul (0.3-0.9); NEUTROPHIL # 6.6 10^3/ul (1.6-7.5); NEUTROPHILS % 66.4 % (39.0-77.0); PLATELET COUNT 228 10^3/UL (140-415); RED BLOOD COUNT 4.39 10^6/ul (4.20-5.40); RED CELL DISTRIBUTION WIDTH 11.9 % (11.5-14.5); WHITE BLOOD COUNT 9.9 10^3/ul (4.8-10.8)
[2017-07-03 18:12] LABS: ALBUMIN 3.7 g/dl (3.3-4.9); ALBUMIN/GLOBULIN RATIO 1.32; BILIRUBIN,INDIRECT 0.5 mg/dl (0-1.1); BILIRUBIN,TOTAL 0.5 mg/dl (0.2-1.3); CALCIUM 9.4 mg/dl (8.4-10.2); CREATININE 0.65 mg/dl (0.44-1.00); POTASSIUM 3.9 mmol/L (3.5-5.1); TOTAL PROTEIN 6.5 g/dl (6.1-8.1)
[2017-07-03 18:30] LABS: ADD UMIC NO; UR ASCORBIC ACID NEGATIVE (NEGATIVE); UR BILIRUBIN (Dip) NEGATIVE (NEGATIVE); UR BLOOD (Dip) NEGATIVE (NEGATIVE); UR CLARITY CLEAR (CLEAR); UR COLOR YELLOW (YELLOW); UR GLUCOSE (Dip) NEGATIVE (NEGATIVE); UR KETONES (Dip) 1+ mg/dL (NEGATIVE); UR LEUKOCYTE ESTERASE (Dip) NEGATIVE Leu/ul (NEGATIVE); UR NITRITE (Dip) NEGATIVE (NEGATIVE); UR SPECIFIC GRAVITY (Dip) 1.011 (1.003-1.030); UR TOTAL PROTEIN (Dip) NEGATIVE (NEGATIVE); UR UROBILINOGEN (Dip) NEGATIVE (NEGATIVE)
--- NOTE | 2017-07-03 19:36 | RADRPT ---
PROCEDURE: Obstetrical ultrasound greater than 14 weeks CLINICAL INDICATION: Pelvic pain TECHNIQUE: Real time sonographic imaging of the gravid uterus is performed transabdominally and mu ltiple static marsh scale and Doppler images are submitted for review as are measurements. The image s are reviewed on the PACS. COMPARISON: 05/23/2017 FINDINGS: The cervical os is closed with a normal cervical length of 3.02 cm. There is a single living intrauterine gestation in variable to cephalic presentation. The he art beat is estimated at 174 bpm. The measurements are as follows: BPD:2.83 cm HC:10.18 cm AC:8.30 cm FL:1.43 cm Estimated gestational age is 14 weeks 5 days. The estimated date of delivery is 12/27/2017. The estimated weight is 98 grams. Placenta is posterior and grade 0. There is no evidence of placenta previa or abruption. The amniotic fluid is normal, the maximum vertical pocket estimated at 3.7 cm. Left ovary is unremarkable estimated at 2.3 x 1.8 x 1.4 cm. The right ovary is not visualized. RPTAT:HJJR IMPRESSION: 1. Single viable intrauterine gestation estimated at 14 weeks 5 days, compared 05/23/2017 with the e stimated date of delivery 12/27/2017. 2. Posterior grade 0 placenta without evidence of placenta previa or abruption. 3. Sonographically normal left ovary. Right ovary is not visualized Physician Daren Date Time Electronically viewed and signed by Physician Daren on 07/03/2017 19:36 /
--- NOTE | 2017-07-03 23:08 | RADRPT ---
PROCEDURE: MR Abdomen without contrast. CLINICAL INDICATION: Lower abdominal pain for 1 day. 15 weeks . TECHNIQUE: MRI abdomen without contrast was performed. The following pulse sequences were obtained : Three plane gradient echo localizer, axial fast spin echo T2-weighted images with fat saturation, axial T2-weighted images, axial T1-weighted gradient echo in phase and out of phase images, coronal T2-weighted images with fat saturation, axial 3-D LAVA images. COMPARISON: None available FINDINGS: The liver is normal in size and homogeneous in signal intensity. There is no focal hepatic lesion. The spleen is normal in size and homogeneous in signal intensity. The stomach is partially collapse d but grossly unremarkable. The gallbladder is unremarkable with no gallstones. The bile ducts are normal with no dilatation o r filling defect to suggest calculus. The pancreas is unremarkable. No pancreatic lesion is seen. The adrenal glands are unremarkable. The kidneys are symmetrically normal. The aorta is of normal caliber. There is no retroperitoneal lymphadenopathy. The appendix is well seen and appears normal. There is no periappendiceal fluid collection or mass. There is no free fluid in the abdomen or pelvis. There is a small fat-containing umbilical hernia. There is no herniated bowel. There is a single intrauterine gestation. Placenta is posterior. Amniotic fluid volume is normal. The osseous structures are unremarkable with normal signal intensity throughout. IMPRESSION: 1. Normal gallbladder and bile ducts. 2. Normal appendix. No evidence of appendicitis. 3. Small fat-containing umbilical hernia. No herniated bowel. 4. Single intrauterine gestation. Posterior placenta. 5. Otherwise unremarkable study. RPTAT: QQ .Markie Mendoza MD, Date Time Electronically viewed and signed by .Markie Mendoza MD, MD on 07/03/2017 23:08 .R/
[2017-07-03] MEDS ORDERED: METR500T PO (23:37)
[2017-07-03] MEDS ORDERED: ACET500C5 PO (23:38)
[2017-07-03 23:51] VITALS: BP 115/68; PULSE 86; RESP 20; TEMP 98.1
== END 2017-07-03 23:52 | disposition home or self-care (01) ==
LOC: FTE 16:44
DX: O26.892 Other specified pregnancy related conditions, second trimester (principal); R10.31 Right lower quadrant pain; R10.32 Left lower quadrant pain; O23.592 Infection of other part of genital tract in pregnancy, second trimester; E03.9 Hypothyroidism, unspecified; O99.282 Endocrine, nutritional and metabolic diseases complicating pregnancy, second trimester; Z3A.14 14 weeks gestation of pregnancy; Z79.82 Long term (current) use of aspirin
CPT/HCPCS: 36415; 74181; 76805; 80053; 81003; 85025; 86900; 86901; 87210; Z7502; Z7610

== ENCOUNTER 2017-08-13 15:43 | Outpatient (CLI) | payer BC ==
[~2017-08-13] VITALS: Ht 162.6 cm; Wt 60.6 kg
[~2017-08-13 15:43] MED LIST changes: +ACET500C5 PO; +METR500T PO
[2017-08-13 15:53] VITALS: Ht 162.6 cm; Wt 60.6 kg
[2017-08-13 15:54] VITALS: BP 110/62; PULSE 85; RESP 16
[2017-08-13] MEDS ORDERED: NIFEdipine 10 MG CAP ONE (18:17)
--- NOTE | 2017-08-13 18:52 | RADRPT ---
PROCEDURE: CERVICAL LENGTH ULTRASOUND CLINICAL INDICATION: Contractions at 20 weeks gestational age. TECHNIQUE: Trans-vaginal imaging of the cervical canal was performed utilizing marsh-scale imaging. Sagittal and transverse images were obtained. Trans-abdominal images were also obtained. The estuardo ges were reviewed on a PACS workstation. COMPARISON: None. FINDINGS: There is a single live intrauterine . heart rate is 148 beats per minute. Position is cephalic and placenta is posterior grade 0. There is no placenta previa. The cervix is closed with a length of 4.5 cm. IMPRESSION: 1. Cervical length is 4.5 cm. RPTAT: QQ .Markie Mendoza MD, MD Date Time Electronically viewed and signed by .Markie Mendoza MD, on 08/13/2017 16:48 .R/
[2017-08-13] MEDS ORDERED: NIFEdipine 10 MG CAP PO SCH (19:30)
[2017-08-13] MEDS ORDERED: LACTATED RINGER'S 1,000 ML IV SCH (19:30)
--- NOTE | 2017-08-13 21:58 | TRIAGE ---
OB Triage Datetime Report Generated by CPN: 08/13/2017 21:23 Datetime: 08/13/2017 21:04 Labor Evaluation Frequency: OCCASIONAL Monitor Mode: External Duration (sec)2399: 40-50 Quality: Mild Pattern: Normal: <= 5 Contractions in 10 Minutes Resting Tone [place]: Relaxed Pain Assessment Pain Scale: 4 Pain Presence: Intermittent Pain Type: Cramping Pain Location: Abdomen Pain Relief Measures: Comfort Measures Pain Assessment Comments: PT STATES THAT IT IS NOW TOLERABLE PAIN Datetime: 08/13/2017 20:00 Labor Evaluation Frequency: IRREGULAR Monitor Mode: External Duration (sec)2399: 40-50 Quality: Mild Pattern: Normal: <= 5 Contractions in 10 Minutes Resting Tone [place]: Relaxed Contraction Comments: SMALL UC'S DETECTED MEASURING LESS THAN 40 SECONDS. Datetime: 08/13/2017 19:39 Maternal Assessment Level of Consciousness: Fully Conscious DTR's/Clonus: DTRs 2+; No Clonus Headache: Denies Blurred Vision: No Respiratory Effort: Unlabored; Regular Rhythm; Equal Expansion Nausea/Vomiting: Denies RUQ Epigastric Pain: Denies Pain Assessment Pain Scale: 5 Pain Presence: Intermittent Pain Type: Cramping Pain Location: Abdomen Pain Goal: 2 Pain Relief Measures: Comfort Measures Pain Assessment Comments: PT STATES THAT HER PAIN HAS REDUCED SINCE RECEIVING PROCARDIA AND IS NOT TOLERABLE. Datetime: 08/13/2017 18:58 Labor Evaluation Frequency: 2-7 Monitor Mode: External Duration (sec)2399: 30-50 Quality: Mild Pattern: Normal: <= 5 Contractions in 10 Minutes Resting Tone [place]: Relaxed Datetime: 08/13/2017 18:00 Labor Evaluation Frequency: 1-4 Monitor Mode: External Duration (sec)2399: 20-50 Quality: Mild Pattern: Normal: <= 5 Contractions in 10 Minutes Resting Tone [place]: Relaxed Pain Assessment Pain Scale: 8 Pain Presence: Intermittent Pain Type: Contraction Pain Location: Abdomen Pain Goal: 3 Datetime: 08/13/2017 17:00 Labor Evaluation Frequency: 2-4 Monitor Mode: Palpation Duration (sec)2399: 20-50 Quality: Mild Pattern: Normal: <= 5 Contractions in 10 Minutes Resting Tone [place]: Relaxed Pain Assessment Pain Scale: 6 Pain Presence: Intermittent Pain Type: Contraction Pain Location: Abdomen Pain Goal: 3 Datetime: 08/13/2017 15:59 Assessment Type: Triage Maternal Assessment Level of Consciousness: Fully Conscious DTR's/Clonus: DTRs 2+; No Clonus Headache: Denies Blurred Vision: No Respiratory Effort: Unlabored; Regular Rhythm; Equal Expansion Breath Sounds, Left: Clear and Equal Breath Sounds, Right: Clear and Equal Nausea/Vomiting: Denies RUQ Epigastric Pain: Denies Lower Extremities Edema: None Degree: None Upper Extremities Edema: None Degree: None Facial Edema: None Fall Risk Assessment History of Falling: (0) No Secondary Diagnosis: (0) No Ambulatory Aid: (0) Bedrest/Nurse Assist IV Therapy: (0) No Gait: (0) Normal/Bedrest/Immobile Mental Status: (0) Oriented to Own Ability Fall Score: 0 Fall Risk Score Definition: No Risk: No action required Datetime: 08/13/2017 15:57 Time of Arrival: 08/13/2017 15:35 EGA: 20.5 Arrived By: Ambulatory Arrived From: Home Chief Complaint: Pt. came to hospital c/o lower abdominal and lower back pain since 1100am today, pain level 6/10 Movement: Present Contractions: Irregular Rupture of Membranes: Denies Vaginal Bleeding: None Vaginal Discharge: Denies Recent Sexual Intercouse: Denies Abdominal Trauma: Not Applicable Patient Complaints: Other Time Provider Notified: 08/13/2017 16:14 Provider Notified: Initial Plan: r/o ptl Datetime: 08/13/2017 15:51 Heart Rate Comments: fhr 145 by u/s
--- NOTE | 2017-08-14 04:10 | PN ---
Triage Information Date/Time Reason for visit: Weeks of Gestation 20w 5d /Para Objective Vital Signs Date Time Temp Pulse Resp B/P Pulse Ox O2 Delivery O2 Flow Rate FiO2 08/13/17 15:54 98.2 85 16 110/62 Results/Medications Result Diagram: 08/13/17 1830 08/13/17 1830 Results 24 hrs Laboratory Tests Test 08/13/17 16:15 08/13/17 18:30 Urine Color YELLOW Urine Clarity SLIGHTLY CLOUDY A Urine pH 6.0 Urine Specific [place] 1.013 Urine Ketones 1+ H Urine Nitrite NEGATIVE Urine Bilirubin NEGATIVE Urine Urobilinogen NEGATIVE Urine Leukocyte Esterase TRACE A Urine Microscopic RBC 1 Urine Microscopic WBC 3 Urine Squamous Epithelial Cells MODERATE Urine Bacteria FEW A Urine Mucus FEW A Urine Hemoglobin NEGATIVE Urine Glucose 1+ H Urine Total Protein NEGATIVE White Blood Count 9.6 Red Blood Count 4.24 Hemoglobin 13.4 Hematocrit 38.1 Mean Corpuscular Volume 89.9 Mean Corpuscular Hemoglobin 31.6 Mean Corpuscular Hemoglobin Concent 35.2 Red Cell Distribution Width 12.3 Platelet Count 222 Mean Platelet Volume 10.4 Neutrophils % 70.3 Lymphocytes % 22.9 Monocytes % 5.0 Eosinophils % 1.0 Basophils % 0.4 Nucleated Red Blood Cells % 0.0 Neutrophils # 6.7 Lymphocytes # 2.2 Monocytes # 0.5 Eosinophils # 0.1 Basophils # 0.0 Nucleated Red Blood Cells # 0.0 Sodium Level 142 Potassium Level 3.8 Chloride Level 109 Carbon Dioxide Level 27 Anion Gap 10 Blood Urea Nitrogen 4 L Creatinine 0.57 Glucose Level 79 Calcium Level 9.0 Total Bilirubin 0.5 Direct Bilirubin 0.00 Indirect Bilirubin 0.5 Aspartate Amino Transf (AST/SGOT) 21 Alanine Aminotransferase (ALT/SGPT) 29 Alkaline Phosphatase 56 Total Protein 6.9 Albumin 3.5 Globulin 3.40 H Albumin/Globulin Ratio 1.02 Thyroid Stimulating Hormone (TSH) 1.720 Imaging Results CL 4.5cm Disposition: Discharge Assessment/Plan 27 y/o with cramping, improved with IVFs -discharge home -f/u with CRAIG PRATER Aug 14, 2017 04:10
== END 2017-08-13 21:11 | disposition home or self-care (01) ==
LOC: OBT 15:43 → L-D 15:44 → OBT 21:11
PROVIDERS: ATTEND Specialist
DX: O62.9 Abnormality of forces of labor, unspecified (principal); Z3A.20 20 weeks gestation of pregnancy
CPT/HCPCS: 36415; 76817; 80053; 81001; 84443; 85025; 96360; 96361; J7120; Z7500; Z7610; G0463

== ENCOUNTER 2017-09-02 17:19 | Outpatient (CLI) | payer BC ==
[~2017-09-02] VITALS: Ht 162.6 cm; Wt 63.0 kg
[2017-09-02 17:40] LABS: BASOPHILS % 0.3 % (0.0-2.0); EOSINOPHILS # 0.1 10^3/ul (0.0-0.5); EOSINOPHILS % 0.9 % (0.0-7.0); HEMATOCRIT 39.4 % (37.0-47.0); HEMOGLOBIN 13.6 g/dl (12.0-16.0); LYMPHOCYTES # 2.6 10^3/ul (0.8-2.9); LYMPHOCYTES % 21.6 % (15.0-51.0); MEAN CORPUSCULAR HGB CONC 34.5 g/dl (32.0-37.0); MEAN CORPUSCULAR VOLUME 89.7 fl (82.0-101.0); MEAN PLATELET VOLUME 10.3 fl (7.4-10.4); MONOCYTE # 0.5 10^3/ul (0.3-0.9); MONOCYTES % 3.8 % (0.0-11.0); NEUTROPHIL # 8.7 10^3/ul (1.6-7.5); NEUTROPHILS % 72.7 % (39.0-77.0); PLATELET COUNT 236 10^3/UL (140-415); RED BLOOD COUNT 4.39 10^6/ul (4.20-5.40); RED CELL DISTRIBUTION WIDTH 12.3 % (11.5-14.5)
[2017-09-02 17:41] VITALS: BP 121/78; PULSE 90; RESP 20; Ht 162.6 cm; Wt 63.0 kg
[2017-09-02 17:56] LABS: ALBUMIN 3.8 g/dl (3.3-4.9); ALBUMIN/GLOBULIN RATIO 1.18; BILIRUBIN,INDIRECT 0.4 mg/dl (0-1.1); BILIRUBIN,TOTAL 0.4 mg/dl (0.2-1.3); CREATININE 0.64 mg/dl (0.44-1.00); POTASSIUM 4.1 mmol/L (3.5-5.1)
[2017-09-02] MEDS ORDERED: LACTATED RINGER'S 1,000 ML IV ONE (18:00)
[2017-09-02 18:42] LABS: ADD UMIC NO; UR ASCORBIC ACID NEGATIVE (NEGATIVE); UR BILIRUBIN (Dip) NEGATIVE (NEGATIVE); UR BLOOD (Dip) NEGATIVE (NEGATIVE); UR CLARITY CLEAR (CLEAR); UR COLOR YELLOW (YELLOW); UR GLUCOSE (Dip) NEGATIVE (NEGATIVE); UR KETONES (Dip) TRACE mg/dL (NEGATIVE); UR LEUKOCYTE ESTERASE (Dip) NEGATIVE Leu/ul (NEGATIVE); UR NITRITE (Dip) NEGATIVE (NEGATIVE); UR SPECIFIC GRAVITY (Dip) 1.014 (1.003-1.030); UR TOTAL PROTEIN (Dip) NEGATIVE (NEGATIVE); UR UROBILINOGEN (Dip) NEGATIVE (NEGATIVE)
--- NOTE | 2017-09-02 18:51 | RADRPT ---
PROCEDURE: US OB. CLINICAL INDICATION: vag spotting and lower abd pain TECHNIQUE: Multiple sonographic images of the pelvis were obtained. The images were reviewed on a PACS workstation. COMPARISON: No prior studies are available for comparison. FINDINGS: The cervix is closed with a length of 3.65 cm. There is a single viable intrauterine gestation. Cardiac activity is present with 150 bpm beats per minute. There is a vertex presentation. Measurements were made in order to determine age. The results are as follows: BPD =5.6 cm HC =21.5 cm AC =19.3 cm FL =4.1 cm. Estimated gestational age of approximately 23 weeks 3 days The estimated date of delivery is 12/27/2017. The EFW = 609.7 g plus or minus 91.5 g. . The placenta is posterior, grade 1. There is no evidence for an abruption or placenta previa. There are no adnexal masses.. IMPRESSION: 1. Single viable intrauterine gestation of approximately 23 weeks, 3 days The estimated date of del cara is 12/27/2017 2. EFW 609.7 g plus or minus 91.5 g. .James Lee MD, MD Date Time Electronically viewed and signed by .James Lee MD, MD on 09/02/2017 18:50 .M/
[2017-09-02 19:12] LABS: BARBITURATES Negative (NEGATIVE); BENZODIAZEPINES Negative (NEGATIVE); CANNABINOIDS Negative (NEGATIVE); COCAINE Negative (NEGATIVE)
[2017-09-02 19:33] LABS: OPIATES Negative (NEGATIVE)
[2017-09-02] MEDS ORDERED: SOD CHLORIDE 0.9% 1,000 ML IV SCH (20:12)
[2017-09-02] MEDS ORDERED: CEFTRIAXONE 1 GM/50 ML (PMX) 50 ML IVPB ONE (20:30)
--- NOTE | 2017-09-02 21:39 | RADRPT ---
PROCEDURE: Renal US. CLINICAL INDICATION: Back pain, right flank pain, 24 weeks TECHNIQUE: Multiple sonographic images of the kidneys and bladder were obtained. The images were reviewed on a PACS workstation. COMPARISON: Right upper quadrant abdominal ultrasound and CT abdomen and pelvis of 01/26/2016 FINDINGS: The right kidney measures 9.1 cm and left kidney 9.6 cm in length. There is mild right hydronephrosi s. No left hydronephrosis is seen. No renal mass or calculus is seen bilaterally. No abnormality of the bladder is seen. Urine jet from left ureteral orifice is seen in the bladder. There is a gravid uterus. IMPRESSION: Mild right hydronephrosis. Please see above. RPTAT: HJES .Glenn Jacques MD, Date Time Electronically viewed and signed by .Glenn Jacques MD, on 09/02/2017 21:39 .S/
--- NOTE | 2017-09-02 22:45 | TRIAGE ---
OB Triage Datetime Report Generated by CPN: 09/02/2017 22:44 Datetime: 09/02/2017 22:10 Stage of : OB Triage Datetime: 09/02/2017 21:00 Labor Evaluation Frequency: 0 Monitor Mode: External Datetime: 09/02/2017 20:51 Vaginal Exam Dilatation (cms): 0.0 Effacement (%): 0 Station: -3 Exam By: Suzy GOODMAN RN Vaginal Bleeding: None Cervix, Consistency: Firm Cervix, Position: Posterior Datetime: 09/02/2017 20:00 Labor Evaluation Frequency: IRREGULAR Monitor Mode: External Duration (sec)2399: 60 Quality: Mild Pattern: Normal: <= 5 Contractions in 10 Minutes Resting Tone [place]: Relaxed Datetime: 09/02/2017 19:15 Assessment Type: Triage Maternal Assessment Level of Consciousness: Fully Conscious Maternal Assessment Level of Consciousness: Fully Conscious DTR's/Clonus: DTRs 2+ DTR's/Clonus: DTRs 2+; No Clonus Headache: Denies Headache: Denies Blurred Vision: No Blurred Vision: No Respiratory Effort: Unlabored; Regular Rhythm; Equal Expansion Breath Sounds, Left: Clear and Equal Breath Sounds, Right: Clear and Equal Nausea/Vomiting: Denies Nausea/Vomiting: Denies RUQ Epigastric Pain: Denies RUQ Epigastric Pain: Denies Lower Extremities Edema: Bilateral Lower Extremities Degree: 1+ Upper Extremities Edema: None Degree: None Facial Edema: None Facial Edema: None Fall Risk Assessment History of Falling: (0) No Secondary Diagnosis: (0) No Ambulatory Aid: (0) Bedrest/Nurse Assist IV Therapy: (0) No Gait: (0) Normal/Bedrest/Immobile Mental Status: (0) Oriented to Own Ability Fall Score: 0 Fall Risk Score Definition: No Risk: No action required Datetime: 09/02/2017 19:12 Pain Assessment Pain Scale: 8 Pain Presence: Constant Pain Location: Abdomen Datetime: 09/02/2017 17:43 Maternal Assessment Level of Consciousness: Fully Conscious Maternal Assessment Level of Consciousness: Fully Conscious DTR's/Clonus: DTRs 2+ DTR's/Clonus: DTRs 2+; No Clonus Headache: Denies Headache: Denies Blurred Vision: No Blurred Vision: No Respiratory Effort: Unlabored; Regular Rhythm; Equal Expansion Breath Sounds, Left: Clear and Equal Breath Sounds, Right: Clear and Equal Nausea/Vomiting: Denies Nausea/Vomiting: Denies RUQ Epigastric Pain: Denies RUQ Epigastric Pain: Denies Facial Edema: None Facial Edema: None Temperature Route: Axillary Fall Risk Assessment History of Falling: (0) No Secondary Diagnosis: (0) No Ambulatory Aid: (0) Bedrest/Nurse Assist IV Therapy: (0) No Gait: (0) Normal/Bedrest/Immobile Mental Status: (0) Oriented to Own Ability Fall Score: 0 Fall Risk Score Definition: No Risk: No action required Heart Rate FHR Baseline Rate: 140 Monitor Mode: External US FHR Baseline Changes: No Baseline Change Variability: Minimal - Undetectable to <=5 bpm Pain Assessment Pain Scale: 8 Pain Presence: Constant Pain Type: Crushing Pain Location: Abdomen Pain Goal: 5 Membrane Status: Intact Datetime: 09/02/2017 17:15 Time of Arrival: 09/02/2017 17:15 EGA: 23.4 Arrived By: Wheelchair Arrived From: Home Chief Complaint: constant lower abd pain and bleeding x 2 days Movement: Present Initial Plan: efm,call dr elliott (for dr henriquez) Datetime: 08/13/2017 15:59 Fall Score: 0 Fall Risk Score Definition: No Risk: No action required Datetime: 08/13/2017 15:57 EGA: 20.5
--- NOTE | 2017-09-02 22:59 | PN ---
Triage Information Date/Time [id number] Reason for visit: Abd/pelvic pain Weeks of Gestation 23w4d /Para A3 Diabetes: none Hypertention: none Objective Vital Signs Date Time Temp Pulse Resp B/P Pulse Ox O2 Delivery O2 Flow Rate FiO2 09/02/17 17:41 98.3 90 20 121/78 98 Room Air Heart Rate: 150's Exam Rt CVA ++ tenderness Results/Medications Result Diagram: 09/02/17 1730 09/02/17 1730 Results 24 hrs Laboratory Tests Test 09/02/17 17:30 09/02/17 18:30 White Blood Count 12.0 #H Red Blood Count 4.39 Hemoglobin 13.6 Hematocrit 39.4 Mean Corpuscular Volume 89.7 Mean Corpuscular Hemoglobin 31.0 Mean Corpuscular Hemoglobin Concent 34.5 Red Cell Distribution Width 12.3 Platelet Count 236 Mean Platelet Volume 10.3 Neutrophils % 72.7 Lymphocytes % 21.6 Monocytes % 3.8 Eosinophils % 0.9 Basophils % 0.3 Nucleated Red Blood Cells % 0.0 Neutrophils # 8.7 H Lymphocytes # 2.6 Monocytes # 0.5 Eosinophils # 0.1 Basophils # 0.0 Nucleated Red Blood Cells # 0.0 Sodium Level 138 Potassium Level 4.1 Chloride Level 106 Carbon Dioxide Level 23 Anion Gap 13 Blood Urea Nitrogen 7 Creatinine 0.64 Glucose Level 79 Calcium Level 9.0 Total Bilirubin 0.4 Direct Bilirubin 0.00 Indirect Bilirubin 0.4 Aspartate Amino Transf (AST/SGOT) 22 Alanine Aminotransferase (ALT/SGPT) 26 Alkaline Phosphatase 71 Total Protein 7.0 Albumin 3.8 Globulin 3.20 Albumin/Globulin Ratio 1.18 Urine Color YELLOW Urine Clarity CLEAR Urine pH 5.0 Urine Specific [place] 1.014 Urine Ketones TRACE A Urine Nitrite NEGATIVE Urine Bilirubin NEGATIVE Urine Urobilinogen NEGATIVE Urine Leukocyte Esterase NEGATIVE Urine Hemoglobin NEGATIVE Urine Glucose NEGATIVE Urine Total Protein NEGATIVE Urine Opiates Screen Negative Urine Barbiturates Negative Urine Amphetamines Screen Negative Urine Benzodiazepines Screen Negative Urine Cocaine Screen Negative Urine Cannabinoids Negative Medications Rocephin 1gm with [id number] q6hr #28 Imaging Results [id number] Disposition: Discharge Assessment/Plan [id number] pelvic pain resolved plan discharge home with instructions of increase intake of fluid LONNIE JUÁREZ MD Sep 02, 2017 22:59
== END 2017-09-02 22:12 | disposition home or self-care (01) ==
LOC: L-D 17:19 → OBT 17:19
PROVIDERS: ATTEND Specialist
DX: O26.892 Other specified pregnancy related conditions, second trimester (principal); R10.2 Pelvic and perineal pain; Z3A.23 23 weeks gestation of pregnancy
CPT/HCPCS: 36415; 76775; 76815; 76817; 80053; 80307; 81003; 85025; 87086; 96374; J0696; J7030; J7120; Z7500; G0463

== ENCOUNTER 2017-09-21 17:19 | Outpatient (CLI) | payer BC ==
[~2017-09-21 17:19] MED LIST changes: -METR500T PO; -ONDA4TAB8 PO
[2017-09-21] MEDS ORDERED: LACTATED RINGER'S 1,000 ML IV SCH (18:00)
--- NOTE | 2017-09-21 18:14 | RADRPT ---
PROCEDURE: Obstetrical ultrasound for biophysical profile CLINICAL INDICATION: Biophysical profile. . TECHNIQUE: Obstetrical ultrasound of the uterus for biophysical profile. Transabdominal views are obtained. COMPARISON: US 09/21/2017; US PELVIS 05/23/2017 FINDINGS: Single intrauterine gestation. Presentation: Variable Placenta: Posterior - right No evidence of placental abruption. No evidence of placenta previa. Cervix is closed as visualized transvaginally measuring 4.3 cm. breathing movement = 2/2 tone = 2/2 motion = 2/2 KAVITA = 2/2 KAVITA = 15.2 cm heart rate: 158 beats per minute IMPRESSION: Single intrauterine gestation. Biophysical profile 05/15 RPTAT: AADD .Josep Dickey MD, Date Time Electronically viewed and signed by .Josep Dickey MD, on 09/21/2017 18:14 .B/
--- NOTE | 2017-09-21 18:16 | RADRPT ---
PROCEDURE: Obstetrical ultrasound. CLINICAL INDICATION: , evaluation. Pelvic pain. TECHNIQUE: Transabdominal sonographic images of the uterus obtained after first trimester , greater than 14 weeks gestation. Single intrauterine gestation present. COMPARISON: US ABDOMEN 09/02/2017; US 09/02/2017 FINDINGS: Single intrauterine gestation. There is a variable presentation. Measurements were made in order to determine age. The results are as follows: BPD = 25 weeks 0 day(s) HC = 25 weeks 0 day(s) AC = 27 weeks 3 day(s) FL = 26 weeks 2 day(s) KAVITA = not measured Heart rate = 161 beats per minute The placenta is posterior - right lateral. There is no evidence for an abruption or placenta previa. Ovaries are not visualized. IMPRESSION: Single intrauterine gestation of approximately 26 weeks 0 days by ultrasound criteria. [place] estimated weight = 964 g; 53 percentile for gestational age of 26 weeks 2 days. RPTAT: AADD .Josep Dickey MD, MD Date Time Electronically viewed and signed by .Josep Dickey MD, on 09/21/2017 18:16 .B/
[2017-09-21 18:31] LABS: ADD UMIC YES; UR ASCORBIC ACID 40 mg/dL (NEGATIVE); UR BILIRUBIN (Dip) NEGATIVE (NEGATIVE); UR BLOOD (Dip) NEGATIVE (NEGATIVE); UR CLARITY CLEAR (CLEAR); UR COLOR YELLOW (YELLOW); UR GLUCOSE (Dip) NEGATIVE (NEGATIVE); UR KETONES (Dip) NEGATIVE (NEGATIVE); UR LEUKOCYTE ESTERASE (Dip) TRACE Leu/ul (NEGATIVE); UR MUCUS FEW /HPF (NONE SEEN); UR NITRITE (Dip) NEGATIVE (NEGATIVE); UR RBC 1 /HPF (0-5); UR SPECIFIC GRAVITY (Dip) 1.021 (1.003-1.030); UR SQUAMOUS EPITHELIAL CELL FEW /HPF (FEW); UR TOTAL PROTEIN (Dip) NEGATIVE (NEGATIVE); UR UROBILINOGEN (Dip) NEGATIVE (NEGATIVE)
--- NOTE | 2017-09-22 01:29 | PN ---
Triage Information Date/Time 09/21/17 Reason for visit: Uterine contractions Weeks of Gestation 26w2d /Para A3 Diabetes: none Hypertention: none Objective Intake and Output 09/21/17 09/21/17 09/22/17 15:00 23:00 07:00 Intake Total 437.5 ml Balance 437.5 ml Heart Rate: 140's Contractions: < 5 Minutes Apart Exam ftp/long/-3 Results/Medications Results 24 hrs Laboratory Tests Test 09/21/17 17:44 Urine Color YELLOW Urine Clarity CLEAR Urine pH 5.0 Urine Specific [place] 1.021 Urine Ketones NEGATIVE Urine Nitrite NEGATIVE Urine Bilirubin NEGATIVE Urine Urobilinogen NEGATIVE Urine Leukocyte Esterase TRACE A Urine Microscopic RBC 1 Urine Microscopic WBC 6 H Urine Squamous Epithelial Cells FEW Urine Calcium Oxalate Crystals FEW A Urine Mucus FEW A Urine Hemoglobin NEGATIVE Urine Glucose NEGATIVE Urine Total Protein NEGATIVE Medications iv hydratiopn Imaging Results cvl 4.3afi 15.2 Disposition: Discharge Assessment/Plan IUP 26w2d PTL resolved with IV hydration Plan d/s home with increase fluid intake and rest LONNIE JUÁREZ MD Sep 22, 2017 01:29
--- NOTE | 2017-09-22 04:49 | TRIAGE ---
OB Triage Datetime Report Generated by CPN: 09/22/2017 04:49 Datetime: 09/21/2017 21:30 Stage of : OB Triage Datetime: 09/21/2017 21:00 Labor Evaluation Frequency: 1 Monitor Mode: External Duration (sec)2399: 60 Quality: Mild Pattern: Normal: <= 5 Contractions in 10 Minutes Resting Tone [place]: Relaxed Heart Rate FHR Baseline Rate: 145 Monitor Mode: External US FHR Baseline Changes: No Baseline Change Variability: Moderate 6-25 bpm Accelerations: 15X15 Decelerations: None Category: Category I Datetime: 09/21/2017 20:11 Stage of : OB Triage Datetime: 09/21/2017 20:06 Pain Assessment Pain Scale: 0 Pain Presence: None/Denies Datetime: 09/21/2017 20:00 Labor Evaluation Frequency: IRREGULAR Monitor Mode: External Duration (sec)2399: 40-50 Quality: Mild Pattern: Normal: <= 5 Contractions in 10 Minutes Resting Tone [place]: Relaxed Heart Rate FHR Baseline Rate: 145 Monitor Mode: External US FHR Baseline Changes: No Baseline Change Variability: Moderate 6-25 bpm Accelerations: 15X15 Decelerations: None Category: Category I Datetime: 09/21/2017 19:20 Pain Assessment Pain Scale: 0 Datetime: 09/21/2017 19:13 Assessment Type: Triage Maternal Assessment Level of Consciousness: Fully Conscious DTR's/Clonus: DTRs 2+; No Clonus Headache: Denies Blurred Vision: No Respiratory Effort: Unlabored; Regular Rhythm; Equal Expansion Breath Sounds, Left: Clear and Equal Breath Sounds, Right: Clear and Equal Nausea/Vomiting: Denies RUQ Epigastric Pain: Denies Lower Extremities Edema: None Upper Extremities Edema: None Facial Edema: None Fall Risk Assessment History of Falling: (0) No Secondary Diagnosis: (0) No Ambulatory Aid: (0) Bedrest/Nurse Assist IV Therapy: (0) No Gait: (0) Normal/Bedrest/Immobile Mental Status: (0) Oriented to Own Ability Fall Score: 0 Fall Risk Score Definition: No Risk: No action required Pain Presence: None/Denies Datetime: 09/21/2017 18:14 Monitor Mode: Palpation Resting Tone [place]: Relaxed Pain Presence: Intermittent Pain Type: Contraction Datetime: 09/21/2017 17:44 Heart Rate FHR Baseline Rate: 150 Comments: ega 26.2 Datetime: 09/21/2017 17:24 Assessment Type: Triage Maternal Assessment Level of Consciousness: Fully Conscious DTR's/Clonus: DTRs 2+; No Clonus Headache: Denies Blurred Vision: No Respiratory Effort: Unlabored; Regular Rhythm; Equal Expansion Breath Sounds, Left: Clear and Equal Breath Sounds, Right: Clear and Equal Nausea/Vomiting: Denies RUQ Epigastric Pain: Denies Lower Extremities Edema: None Upper Extremities Edema: None Facial Edema: None Fall Risk Assessment History of Falling: (0) No Secondary Diagnosis: (0) No Ambulatory Aid: (0) Bedrest/Nurse Assist IV Therapy: (0) No Gait: (0) Normal/Bedrest/Immobile Mental Status: (0) Oriented to Own Ability Fall Score: 0 Fall Risk Score Definition: No Risk: No action required Datetime: 09/21/2017 17:21 Maternal Assessment Level of Consciousness: Fully Conscious Headache: Denies Blurred Vision: No Respiratory Effort: Unlabored Nausea/Vomiting: Denies RUQ Epigastric Pain: Denies Pain Assessment Pain Scale: 10 Pain Presence: Intermittent Pain Type: Contraction Pain Location: Abdomen Datetime: 09/21/2017 17:20 Time of Arrival: 09/21/2017 17:05 EGA: 26.2 Arrived By: Wheelchair Arrived From: Home Chief Complaint: pt. states she was at work at [employer] and felt like she 'urinated on herself" a t 1630 and had some bleeding when she wiped . pt. came to triage stated she had to go the the b.r #2 and 07/17 pain. pt. appeared to be in active labor. rn did ve exam and /3 unable to determine presentation Movement: Present Contractions: Regular Rupture of Membranes: Unsure Vaginal Bleeding: None Vaginal Discharge: Denies Recent Sexual Intercouse: Denies Abdominal Trauma: Not Applicable Patient Complaints: Contractions; Back Pain Additional Patient Complaints: pt. states possible neural tube defect Time Provider Notified: 09/21/2017 17:32 Provider Notified: lexi henriquez Datetime: 09/21/2017 17:18 Stage of : Antepartum Stage of : OB Triage Vaginal Exam Dilatation (cms): 0.5 Effacement (%): 30 Station: -3 Exam By: vc Vaginal Bleeding: None Cervix, Consistency: Moderate Cervix, Position: Posterior Presentation 'A': Unable to Assess Datetime: 09/02/2017 19:15 Fall Score: 0 Fall Risk Score Definition: No Risk: No action required Datetime: 09/02/2017 17:43 Fall Score: 0 Fall Risk Score Definition: No Risk: No action required Datetime: 09/02/2017 17:15 EGA: 23.4 Datetime: 08/13/2017 15:59 Fall Score: 0 Fall Risk Score Definition: No Risk: No action required Datetime: 08/13/2017 15:57 EGA: 20.5
== END 2017-09-21 21:30 | disposition home or self-care (01) ==
LOC: OBT 17:19 → L-D 17:20 → OBT 21:30
PROVIDERS: ATTEND Specialist
DX: O62.9 Abnormality of forces of labor, unspecified (principal); Z3A.26 26 weeks gestation of pregnancy
CPT/HCPCS: 36415; 76816; 76817; 76818; 81001; 87086; 96360; 96361; J7120; Z7500; G0463

== ENCOUNTER 2017-10-23 10:55 | Outpatient (CLI) | END 2017-10-23 13:55 | disposition home or self-care (01) ==

== ENCOUNTER 2017-10-23 13:55 | Emergency (ER) | END 2017-10-23 14:19 | disposition home or self-care (01) ==

== ENCOUNTER 2017-11-07 11:20 | Inpatient (IN) | END 2017-11-12 14:30 | disposition home or self-care (01) | DRG 781 ==

== ENCOUNTER 2017-11-22 19:16 | Outpatient (CLI) | END 2017-11-23 00:45 | disposition home or self-care (01) ==

== ENCOUNTER 2017-12-03 10:47 | Outpatient (CLI) | END 2017-12-03 16:06 | disposition home or self-care (01) ==

== ENCOUNTER 2017-12-11 14:24 | Outpatient (CLI) | END 2017-12-11 20:49 | disposition home or self-care (01) ==

== ENCOUNTER 2017-12-15 16:36 | Outpatient (CLI) | END 2017-12-15 20:20 | disposition home or self-care (01) ==

== ENCOUNTER 2017-12-17 09:00 | Inpatient (IN) | END 2017-12-19 12:05 | disposition home or self-care (01) | DRG 775 ==

== ENCOUNTER 2018-05-05 21:43 | Emergency (ER) | END 2018-05-06 00:45 | disposition home or self-care (01) ==

== ENCOUNTER 2019-03-02 16:57 | Emergency (ER) | payer BC ==
[~2019-03-02] VITALS: Wt 70.0 kg
[~2019-03-02 16:57] MED LIST changes: -ACET500C5 PO; +ASPI-535 PO; -ASPI-664 PO; -FER325 PO; +FERR134T PO; -FOLI-49 PO; +PREN-19 PO; -PRENAT PO; -PYRI50TA80 PO
[2019-03-02] MEDS ORDERED: MELO15TA30 PO (17:09)
--- NOTE | 2019-03-02 17:13 | ERD ---
ER Documentation Chief Complaint Chief Complaint HEADACHE X 2 WEEKS; UNABLE TO TOLERATE PAIN TODAY HPI This is a 28-year-old female who presents from the ED 2 for evaluation of right-sided lower face weakness. Patient has a complex history where she has had vague neurologic symptoms in the past, in 2013 she had focal weakness, which was actually treated a stroke with TPA in the ER. Subsequently she was found to have no evidence of CVA. In 2017 she presented with visual disturbances, and was transferred out emergently for neurologic imaging. Is unclear with the r esults of these were since we do not have outside records, however it does not appear to have been stroke related per the patient, and she mentioned nothing of multiple sclerosis either. She states that she had a headache earlier today and then noted that she had facial droop about an hour prior to arrival. No fever, no neck stiffness. On evaluation she is very tearful. ROS All systems reviewed and are negative except as per history of present illness. Medications Home Meds Reported Medications Meloxicam* (Mobic*) 15 Mg Tablet, 15 MG PO DAILY, #30 TAB 03/02/19 Discontinued Reported Medications Ferrous Sulfate (Iron) 134 Mg Tablet, 134 MG PO DAILY, TAB 11/22/17 Aspirin Ec (Aspir 81) 81 Mg Tablet.dr, 81 MG PO DAILY, #30 TAB 11/22/17 Vit #76/Iron,Carb/FA (Prenatabs Rx Tablet) 1 Each Tablet, 1 EACH PO DAILY, TAB 11/22/17 Allergies Allergies: Coded Allergies: No Known Drug Allergies (Verified Allergy, Unknown, 03/02/19) PMhx/Soc History of Surgery: Yes (r. ankle) Anesthesia Reaction: No Hx Neurological Disorder: Yes (Seizures, CVA X3, Hx of TPA) Hx Respiratory Disorders: No Hx Cardiac Disorders: No Hx Psychiatric Problems: No Hx Miscellaneous Medical Probl: Yes (Hypothyroidism) Hx Alcohol Use: No Hx Substance Use: No Hx Tobacco Use: No Smoking Status: Unknown if ever smoked Physical Exam Vitals Vital Signs Date Temp Pulse Resp B/P (MAP) Pulse Ox O2 O2 Flow FiO2 Time Delivery Rate 03/02/19 98.0 96 18 129/60 99 17:05 (83) Physical Exam Const: No acute distress Head: Atraumatic Eyes: Normal Conjunctiva ENT: Normal External Ears, Nose and Mouth. Neck: Full range of motion. No meningismus. Resp: Clear to auscultation bilaterally Cardio: Regular rate and rhythm, no murmurs Abd: Soft, non tender, non distended. Normal bowel sounds Skin: No petechiae or rashes Back: No midline or flank tenderness Ext: No cyanosis, or edema Neur: Awake and alert Psych: Normal Mood and Affect Procedures/MDM 20-year-old female presents for evaluation of right lower facial droop. Given the sparing of her upper forehead it does not appear to be Zhang's palsy. As noted above it is unclear if she has a primary neurologic disorder. I considered the possibility that her symptoms could be effort dependent, however given the acute nature, code stroke was called for neurologic consultation as well as CT imaging. CT was negative, and neurology agrees that her symptoms do not appear to be stroke related and she did not appear to have a primary neurologic condition. I returned to the bedside and discussed these findings with patient and spouse. She endorsed that she does have a lot of anxiety, however denies any SI or HI. My consideration that she could have a complex migraine, versus conversion disorder, JONNATHAN ABRAHAM MD March 02, 2019 17:13
[2019-03-02] MEDS ORDERED: KETOROLAC 15 MG INJ IV STA (17:23)
[2019-03-02] MEDS ORDERED: ONDANSETRON 4 MG INJ IV STA (17:23)
[2019-03-02] MEDS ORDERED: SOD CHLORIDE 0.9% 1,000 ML IV STA (17:23)
[2019-03-02] MEDS ORDERED: LORAZEPAM 2 MG INJ IV ONE (17:30)
[2019-03-02] MEDS ORDERED: IBUP-1542 PO (18:14)
[2019-03-02] MEDS ORDERED: ALPR0.5T PO (18:14)
[2019-03-02] MEDS ORDERED: IBUPROFEN 600 MG TAB PO ONE (18:30)
[2019-03-02 20:06] VITALS: BP 111/79; PULSE 96; RESP 18
== END 2019-03-02 20:06 | disposition home or self-care (01) ==
LOC: E/R 16:57
DX: R29.810 Facial weakness (principal); E03.9 Hypothyroidism, unspecified; R40.2142 Coma scale, eyes open, spontaneous, at arrival to emergency department; R40.2252 Coma scale, best verbal response, oriented, at arrival to emergency department; Z86.73 Personal history of transient ischemic attack (TIA), and cerebral infarction without residual deficits
CPT/HCPCS: 36415; 80048; 81025; 85025; 96374; 96375; J1885; J2060; J2405; J7030; Z7502; Z7610

== ENCOUNTER 2019-03-16 15:51 | Emergency (ER) | payer BC ==
[~2019-03-16] VITALS: Ht 160 cm; Wt 67.5 kg
[~2019-03-16 15:51] MED LIST changes: +ALPR0.5T PO; -ASPI-535 PO; -FERR134T PO; +IBUP-1542 PO; +MELO15TA30 PO; -PREN-19 PO
[2019-03-16 16:00] VITALS: BP 123/74; PULSE 90; RESP 16; Ht 160 cm; Wt 67.5 kg
[2019-03-16] MEDS ORDERED: ACET1TAB40 PO (16:30)
[2019-03-16] MEDS ORDERED: AMOX1TAB10 PO (16:30)
[2019-03-16] MEDS ORDERED: PRED20TA PO (16:30)
--- NOTE | 2019-03-16 16:36 | ERD ---
ER Documentation Chief Complaint Chief Complaint SORE THROAT/NELSON/BILATERAL DRAINAGE & DRY NONPRODUCTIVE COUGH HPI 28-year-old female presents with approximately 2 weeks of frontal headache. She points to between the eyes there headache. She was seen before and treated symptomatically. Over the last week she has had pain in her maxillary sinus areas and has some ear discharge and ear pain. She denies fevers. No significant cough. She denies previous sinus issues. Denies visual changes, vomiting, neurologic deficits. ROS All systems reviewed and are negative except as per history of present illness. Medications Home Meds Active Scripts Acetaminophen with Codeine (Acetaminophen-Cod #3 Tablet) 1 Each Tablet, 1 TAB PO Q6H PRN for PAIN, #7 TAB Prov:JOVANI MUHAMMAD MD 03/16/19 Prednisone* (Prednisone*) 20 Mg Tab, 40 MG PO DAILY for 4 Days, TAB Prov:JOVANI MUHAMMAD MD 03/16/19 Amoxicillin/Potassium Clav (Amox-Clav 875-125 mg Tablet) 875-125 mg Tab, 1 TAB PO BID for 10 Days, #14 TAB Prov:JOVANI MUHAMMAD MD 03/16/19 Alprazolam* (Xanax*) 0.5 Mg Tab, 0.5 MG PO TID PRN for ANXIETY, #9 TAB Prov:JONNATHAN ABRAHAM MD 03/02/19 Ibuprofen* (Motrin*) 600 Mg Tab, 600 MG PO Q8 PRN for PAIN AND/OR INFLAMMATION, #60 TAB Prov:JONNATHAN ABRAHAM MD 03/02/19 Reported Medications Meloxicam* (Mobic*) 15 Mg Tablet, 15 MG PO DAILY, #30 TAB 03/02/19 Allergies Allergies: Coded Allergies: No Known Drug Allergies (Verified Allergy, Unknown, 03/02/19) PMhx/Soc History of Surgery: Yes (r. ankle) Anesthesia Reaction: No Hx Neurological Disorder: Yes (Seizures, CVA X3, Hx of TPA) Hx Respiratory Disorders: No Hx Cardiac Disorders: No Hx Psychiatric Problems: No Hx Miscellaneous Medical Probl: Yes (Hypothyroidism) Hx Alcohol Use: No Hx Substance Use: No Hx Tobacco Use: No FmHx Family History: No diabetes, No coronary disease, No other Physical Exam Vitals Vital Signs Date Temp Pulse Resp B/P (MAP) Pulse Ox O2 O2 Flow FiO2 Time Delivery Rate 03/16/19 98.5 90 16 123/74 95 16:00 (90) Physical Exam Const: No acute distress Head: Atraumatic Eyes: Normal Conjunctiva. Eyes Mamadou and extraocular movements intact. ENT: Normal External Ears, Nose and Mouth. TMs with bilateral redness and decreased light reflex. Possible small sealed Perfs. Tender maxillary sinus area. 2+ nasal congestion. Oropharynx grossly normal. Neck: Full range of motion. No meningismus. Resp: Clear to auscultation bilaterally Cardio: Regular rate and rhythm, no murmurs Abd: Soft, non tender, non distended. Normal bowel sounds Skin: No petechiae or rashes Back: No midline or flank tenderness Ext: No cyanosis, or edema Neur: Awake and alert Psych: Normal Mood and Affect Results 24 hrs Current Medications Medications Dose Sig/Manju Start Time Status Last (Trade) Ordered Route PRN Stop Time Admin Dose Reason Admin Ibuprofen 600 mg ONCE ONCE 03/16/19 DC 03/16/19 (Motrin) PO 17:00 03/16/19 16:52 17:00 Procedures/MDM She presents with 2-week history of frontal headache. She does have pain over the maxillary sinus and signs of otitis media. We will treat for possible sinusitis and otitis media with Augmentin, short course of prednisone and Tylenol 3. She is advised to take ibuprofen, recheck for new worsening symptoms with primary doctor. Is no signs or symptoms to suggest neurologic deficit, intracranial bleeding, mass-effect, BAGGING SALVAGER deficit. The patient was stable with no new complaints during the ER course. Clinically, there is no current evidence to suggest meningitis, sepsis, acute abdomen, pneumonia, stroke, acute coronary syndrome, pulmonary embolism, aortic dissection or any other emergent condition appearing to require further evaluation or hospitalization. Patient counseled regarding my diagnostic impression and care plan. Prior to discharge all questions answered. Pt agrees with treatment plan and understands strict return precautions. Pt is instructed to follow up with primary care provider within 24- 48 hours. Precautionary instructions provided including instructions to return to the ER if not improving or for any worsening or changing symptoms or concerns. Disclaimer: Inadvertent spelling and grammatical errors are likely due to EHR/dictation software use and do not reflect on the overall quality of patient care. Also, please note that the electronic time recorded on this note does not necessarily reflect the actual time of the patient encounter. Departure Diagnosis: Primary Impression: Otitis media Otitis media type: suppurative Chronicity: acute Laterality: bilateral Recurrence: not specified as recurrent Spontaneous tympanic membrane rupture: without spontaneous rupture Qualified Codes: H66.003 - Acute suppurative otitis media without spontaneous rupture of ear drum, bilateral Condition: Stable Patient Instructions: Otitis Media, Abx Tx (Adult), Sinusitis, Abx Tx Additional Instructions: Recheck for new worsening symptoms or primary care doctor. JOVANI MUHAMMAD MD Mar 16, 2019 16:36
[2019-03-16] MEDS ORDERED: IBUPROFEN 600 MG TAB PO ONE (17:00)
== END 2019-03-16 16:52 | disposition home or self-care (01) ==
LOC: FTE 15:51
DX: H66.013 Acute suppurative otitis media with spontaneous rupture of ear drum, bilateral (principal); E03.9 Hypothyroidism, unspecified; Z86.73 Personal history of transient ischemic attack (TIA), and cerebral infarction without residual deficits
CPT/HCPCS: Z7502; Z7610; 99282

== ENCOUNTER 2019-05-15 17:31 | Emergency (ER) | payer BC ==
[~2019-05-15] VITALS: Wt 66.7 kg
[~2019-05-15 17:31] MED LIST changes: +ACET1TAB40 PO; +ACET500C5 PO; +AMOX1TAB10 PO; +NAPR-985 PO; +PRED20TA PO
[2019-05-15] MEDS ORDERED: KETOROLAC 30 MG INJ IM STA (18:18)
[2019-05-15] MEDS ORDERED: ONDANSETRON (ODT) 4 MG TAB ODT STA ×2 (18:18→18:57)
[2019-05-15] MEDS ORDERED: HYDROCODONE/APAP (10/325) TAB PO ONE (18:30)
[2019-05-15] MEDS ORDERED: DEXAMETHASONE 10 MG/ML 1 ML INJ IM ONE (18:30)
[2019-05-15] MEDS ORDERED: MECLIZINE 12.5 MG TAB PO ONE (18:30)
--- NOTE | 2019-05-15 19:46 | ERD ---
ER Documentation Chief Complaint Chief Complaint L eye blurry, L arm numb x5mins. NELSON since 1644 during therapy; anxious. HPI Patient is a 29-year-old female presented to ED for headache on the left side left shoulder pain times a few hours. Patient rates the pain an 8 out of 10 and states that she was in a therapy session and had an emotional outburst and the symptoms came on after. Patient has a history of anxiety. Patient states that she has been nauseous since the episode. Patient states she took Tylenol which has not helped. Patient denies any allergies to medication. Patient states she did have a history of migraines when she was a child but has not been on medication many years. Patient states the headache is similar to what she had in the past. Patient states that she had a stroke in the past. Patient has no slurred speech or facial droop during the initial intake. Patient denies any allergies to medications and states her only prescription medication is Xanax at this time and she did not take it today ROS All systems reviewed and are negative except as per history of present illness. Medications Home Meds Active Scripts Acetaminophen* (Tylophen*) 500 Mg Capsule, 1 CAP PO Q6H PRN for PAIN AND OR ELEVATED TEMP, #20 CAP Prov:RAYMUNDO MEJÍA PA-C 05/15/19 Naproxen* (Naprosyn*) 500 Mg Tablet, 500 MG PO BID PRN for PAIN AND/OR INFLAMMATION, #30 TAB Prov:KATHIA FLETCHER PA-C 04/30/19 Acetaminophen with Codeine (Acetaminophen-Cod #3 Tablet) 1 Each Tablet, 1 TAB PO Q6H PRN for PAIN, #7 TAB Prov:JOVANI MUHAMMAD MD 03/16/19 Prednisone* (Prednisone*) 20 Mg Tab, 40 MG PO DAILY for 4 Days, TAB Prov:JOVANI MUHAMMAD MD 03/16/19 Amoxicillin/Potassium Clav (Amox-Clav 875-125 mg Tablet) 875-125 mg Tab, 1 TAB PO BID for 10 Days, #14 TAB Prov:JOVANI MUHAMMAD MD 03/16/19 Alprazolam* (Xanax*) 0.5 Mg Tab, 0.5 MG PO TID PRN for ANXIETY, #9 TAB Prov:JONNATHAN ABRAHAM MD 03/02/19 Ibuprofen* (Motrin*) 600 Mg Tab, 600 MG PO Q8 PRN for PAIN AND/OR INFLAMMATION, #60 TAB Prov:JONNATHAN ABRAHAM MD 03/02/19 Reported Medications Meloxicam* (Mobic*) 15 Mg Tablet, 15 MG PO DAILY, #30 TAB 03/02/19 Allergies Allergies: Coded Allergies: No Known Drug Allergies (Verified Allergy, Unknown, 04/30/19) PMhx/Soc History of Surgery: Yes (r. ankle) Anesthesia Reaction: No Hx Neurological Disorder: Yes (Seizures, CVA X3, Hx of TPA) Hx Respiratory Disorders: No Hx Cardiac Disorders: No Hx Psychiatric Problems: No Hx Miscellaneous Medical Probl: Yes (Hypothyroidism) Hx Alcohol Use: No Hx Substance Use: No Hx Tobacco Use: No FmHx Family History: No diabetes, No coronary disease, No other Physical Exam Vitals Vital Signs Date Temp Pulse Resp B/P (MAP) Pulse Ox O2 O2 Flow FiO2 Time Delivery Rate 05/15/19 97.6 67 16 113/82 97 Room Air 19:58 (92) 05/15/19 98.4 82 16 128/76 95 17:39 (93) Physical Exam GENERAL: Mild distress HEENT: Atraumatic. Conjunctivae are pink. Pupils equal, round, and reactive to light. There is no scleral icterus. Tympanic membranes clear bilaterally. Oropharynx clear. No nystagmus or photophobia. NECK: C-spine is soft and supple. There is no meningismus. There is no cervical lymphadenopathy. CHEST: Clear to auscultation bilaterally. There are no rales, wheezes or rhonchi. HEART: Regular rate and rhythm. No murmurs, clicks, rubs or gallops. ABDOMEN:Soft, nontender and nondistended. Good bowel sounds. No rebound or guarding. No gross peritonitis. No gross organomegaly or masses. No Lundy sign or McBurney point tenderness. BACK: No midline or flank tenderness. EXTREMITIES: Equal pulses bilaterally. There is no peripheral clubbing, cyanosis or edema. No focal swelling or erythema. Full range of motion. Grossly neurovascularly intact. NEUROLOGIC: Alert and oriented. Cranial nerves II through VII intact. Motor strength in all 4 extremities with 5 out of 5 strength. Sensation grossly intact. Normal speech and gait. SKIN: There is no apparent rash or petechiae. The skin is warm and dry. HEMATOLOGIC AND LYMPHATIC: There is no evidence of excessive bruising or lymphadenopathy. No gross cervical, axillary, or inguinal lymphadenopathy. Result Diagram: 05/15/19183405/15/191834 Results 24 hrs Laboratory Tests Test 05/15/19 18:35 05/15/19 18:37 White Blood Count 8.4 10^3/ul Red Blood Count 5.20 10^6/ul Hemoglobin 16.1 g/dl Hematocrit 47.8 % Mean Corpuscular Volume 91.9 fl Mean Corpuscular Hemoglobin 31.0 pg Mean Corpuscular Hemoglobin Concent 33.7 g/dl Red Cell Distribution Width 12.0 % Platelet Count 244 10^3/UL Mean Platelet Volume 10.2 fl Immature Granulocytes % 0.400 % Neutrophils % 60.4 % Lymphocytes % 31.1 % Monocytes % 5.8 % Eosinophils % 1.7 % Basophils % 0.6 % Nucleated Red Blood Cells % 0.0 /100WBC Immature Granulocytes # 0.030 10^3/ul Neutrophils # 5.1 10^3/ul Lymphocytes # 2.6 10^3/ul Monocytes # 0.5 10^3/ul Eosinophils # 0.1 10^3/ul Basophils # 0.1 10^3/ul Nucleated Red Blood Cells # 0.0 10^3/ul Urine Color YELLOW Urine Clarity CLOUDY Urine pH 9.0 Urine Specific [place] 1.019 Urine Ketones NEGATIVE mg/dL Urine Nitrite NEGATIVE mg/dL Urine Bilirubin NEGATIVE mg/dL Urine Urobilinogen NEGATIVE mg/dL Urine Leukocyte Esterase NEGATIVE Gerda/ul Urine Microscopic RBC 6 /HPF Urine Microscopic WBC 6 /HPF Urine Squamous Epithelial Cells MANY /HPF Urine Amorphous Crystals MODERATE /HPF Urine Bacteria FEW /HPF Urine Hemoglobin NEGATIVE mg/dL Urine Glucose NEGATIVE mg/dL Urine Total Protein NEGATIVE mg/dl Sodium Level 141 mmol/L Potassium Level 4.0 mmol/L Chloride Level 104 mmol/L Carbon Dioxide Level 29 mmol/L Anion Gap 8 Blood Urea Nitrogen 12 mg/dl Creatinine 0.89 mg/dl Est Glomerular Filtrat Rate mL/min > 60 mL/min Glucose Level 116 mg/dl Calcium Level 9.5 mg/dl POC Beta HCG, Qualitative NEGATIVE Current Medications Medications Dose Sig/Manju Start Time Status Last (Trade) Ordered Route PRN Stop Time Admin Dose Reason Admin Ondansetron 4 mg ONCE STAT 05/15/19 DC 05/15/19 HCl (Zofran ODT 18:18 05/15/19 18:31 Odt) 18:24 1 tab ONCE ONCE 05/15/19 DC 05/15/19 Acetaminophen PO 18:30 05/15/19 18:38 / 18:31 Hydrocodone Bitart ([place] (10/325)) Ketorolac 30 mg ONCE STAT 05/15/19 Cancel Tromethamine IM 18:18 05/15/19 (Toradol) 18:19 10 mg ONCE ONCE 05/15/19 DC 05/15/19 Dexamethasone IM 18:30 05/15/19 18:38 (Decadron) 18:31 Meclizine 12.5 mg ONCE ONCE 05/15/19 DC 05/15/19 HCl PO 18:30 05/15/19 18:38 (Antivert) 18:31 Ondansetron 4 mg ONCE STAT 05/15/19 DC 05/15/19 HCl (Zofran ODT 18:57 05/15/19 19:03 Odt) 18:59 Procedures/MDM ED course: The patient was stable throughout the ED course. The patient and/or family informed of laboratory and diagnostic imaging results throughout the ED course. Medications given in ER: [place] Decadron Patient tolerated medication well with no adverse reactions. Patient reported improvement in pain. Medical decision makin-year-old female presenting with left-sided head pain left arm numbness that started after therapy session later this afternoon. Patient's vitals are in stable limit. Patient states she has a history of TIA. Patient has no facial asymmetry no slurred speech no pronator drift. Patient is alert oriented x4. Patient states there is no pain in her arm its more of numbness and tingling. Patient has good range of motion in the extremity and no pain on palpation. Patient states she is injured the arm in the past. Patient has a 8 out of 10 headache on the left side with blurry vision. Patient states the headache feels like her past migraines. The patient was given [place] in the ED and a injection for Decadron. Upon reevaluation the patient states the headache has resided and she feels much better. This time I have low suspicion for TIA, CVA, epidural hematoma, subdural hematoma. The patient denies any traumatic injury so at this time I have low suspicion for concussion. The patient is afebrile and has full range of motion in her neck at this time I have low suspicion for meningitis. Advised the patient she needs follow-up with her primary care provider in regards for migraine treatment and management. The patient remained stable during her entire ED visit. I advised patient that if symptoms worsen return to ER immediately. Patient is in agreement treatment plan all questions answered upon discharge Prescription for home: Acetaminophen I have discussed with the patient proper use and common side effects to expert with the medication . I advised the patient/family to speak with the pharmacist dispensing the medication to be advised of any potential drug interactions with other medication or supplements they may be taking. Discharge: At this time, patient is stable for discharge and outpatient management. I have instructed the patient to follow-up with his\her primary care physician in 1 to 2 days. I have discussed with the patient the possibility of needing to see a specialist for further work-up and imaging studies if symptoms persist. I have instructed the patient to promptly return to the ER for any new or worsening symptoms including increased pain, fever, nausea, vomiting, weakness or LOC. The patient and\or family expressed understanding of and agreement with this plan. All questions were answered. Home care instructions were provided. Disclaimer: Inadvertent spelling and grammatical errors are likely due to EHR\dictation software use and do not reflect on the overall quality of patient care. Also, please note that the electronic time recorded on the note does not necessarily reflect the actual time of the patient encounter. Departure Diagnosis: Primary Impression: Cluster headache Headache chronicity pattern: episodic headache Intractability: intractable Qualified Codes: G44.011 - Episodic cluster headache, intractable Condition: Stable Patient Instructions: Migraines and Cluster Headaches Referrals: [facility] YOU HAVE RECEIVED A MEDICAL SCREENING EXAM AND THE RESULTS INDICATE THAT YOU DO NOT HAVE A CONDITION THAT REQUIRES URGENT TREATMENT IN THE EMERGENCY DEPARTMENT. FURTHER EVALUATION AND TREATMENT OF YOUR CONDITION CAN WAIT UNTIL YOU ARE SEEN IN YOUR DOCTORS OFFICE WITHIN THE NEXT 1-2 DAYS. IT IS YOUR RESPONSIBILITY TO MAKE AN APPOINTMENT FOR FOLOW-UP CARE. IF YOU HAVE A PRIMARY DOCTOR --you should call your primary doctor and schedule an appointment IF YOU DO NOT HAVE A PRIMARY DOCTOR YOU CAN CALL OUR PHYSICIAN REFERRAL HOTLINE AT IF YOU CAN NOT AFFORD TO SEE A PHYSICIAN YOU CAN CHOSE FROM THE FOLLOWING [facility] [address] [facility] [address] [facility] [address] [facility] [address] [facility] [address] [facility]. [facility] [address] [facility] [facility] YOU HAVE RECEIVED A MEDICAL SCREENING EXAM AND THE RESULTS INDICATE THAT YOU DO NOT HAVE A CONDITION THAT REQUIRES URGENT TREATMENT IN THE EMERGENCY DEPARTMENT. FURTHER EVALUATION AND TREATMENT OF YOUR CONDITION CAN WAIT UNTIL YOU ARE SEEN IN YOUR DOCTORS OFFICE WITHIN THE NEXT 1-2 DAYS. IT IS YOUR RESPONSIBILITY TO MAKE AN APPOINTMENT FOR FOLOW-UP CARE. IF YOU HAVE A PRIMARY DOCTOR --you should call your primary doctor and schedule and appointment IF YOU DO NOT HAVE A PRIMARY DOCTOR YOU CAN CALL OUR PHYSICIAN REFERRAL HOTLINE AT . IF YOU CAN NOT AFFORD TO SEE A PHYSICIAN YOU CAN CHOSE FROM THE FOLLOWING [facility] INSTITUTIONS: [facility] [address] [place] [address] [facility] [address] [place] [address] [facility] [address] [place] [address] Additional Instructions: Call your primary care doctor TOMORROW for an appointment during the next 1-2 days.See the doctor sooner or return here if your condition worsens before your appointment time. RAYMUNDO MEJÍA PA-C May 15, 2019 19:46
[2019-05-15 19:58] VITALS: BP 113/82; PULSE 67; RESP 16
== END 2019-05-15 20:00 | disposition home or self-care (01) ==
LOC: FTE 17:31
DX: G44.011 Episodic cluster headache, intractable (principal); E03.9 Hypothyroidism, unspecified
CPT/HCPCS: 80048; 81001; 81025; 85025; 96372; J1100; Z7502; Z7610